=== PATIENT | female | born 1985 | race Caucasian/White ===

== ENCOUNTER 2016-09-03 19:18 | Emergency (ER) | payer OTHER ==
[2016-09-03] MEDS ORDERED: AMOXICILLIN 500 MG CAP As Ordered ONE (21:22)
[2016-09-03] MEDS ORDERED: IBUPROFEN 600 MG TAB As Ordered ONE (21:22)
[2016-09-03] MEDS ORDERED: ACETAMINOPHEN/CODEINE #3 TABLET (BULK) As Ordered ONE (21:23)
--- NOTE | 2016-09-03 21:29 | EDDOCDS ---
Physician Documentation [facility] Name: David Smiley Age: 31 yrs Sex: Female : 1985 Arrival Date: 09/03/2016 Time: 19:18 Bed TR8 Private MD: Ricardo Lambert MD Disposition: 09/03/16 21:15 Discharged to Home/Self Care. Impression: Periapical abscess without sinus. - Condition is Stable. - Discharge Instructions: Dental Abscess. - Prescriptions for Amoxicillin 500 mg Oral Capsule - take 1 capsule by ORAL route every 8 hours for 10 days; 30 tablet. Ibuprofen 600 mg Oral Tablet - take 1 tablet by ORAL route every 6 hours As needed take with food; 30 tablet. Tylenol- Codeine #3 300-30 mg Oral Tablet - take 2 tablets by ORAL route every 6 hours As needed MDD: 4 tabs; 12 tablet. - Medication Reconciliation, Local Pharmacy Hours form. - Follow up: Your own Physician; When: 2 - 3 days; Reason: Recheck today's complaints, Continuance of care. - Problem is new. - Symptoms have improved. Historical: - Allergies: no known allergies; - Home Meds: 1. none - PMHx: none; - PSHx: Knee Arthroplasty, Right; right and left groin surgery; Ear Tubes; - Social history: Smoking status: Patient states former smoker of tobacco. No barriers to communication noted, The patient speaks fluent Cymraes. - Family history: Not pertinent. - : The pt / caregiver states he / she is not on anticoagulants. Home medication list is obtained from the patient. - Exposure Risk Screening:: None identified. 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 8 in. (172.72 cm) (R); Pain 10/10; 21:16 BP 134 / 71; Pulse 69; Resp 18; Temp 98.1(TE); Pulse Ox 98% on R/A; Pain 10/10; mdr 19:19 Body Mass Index 27.37 (81.65 kg, 172.72 cm) gr2 MDM: 21:15 Acetaminophen-Codeine, 4 pack- 300 mg-30 mg 1 packets PO once; Dispense with patient. ck7 Take per package instructions. ordered. 21:15 Amoxicillin 500 mg PO once ordered. ck7 21:15 Ibuprofen 600 mg PO once ordered. ck7 21:25 Financial registration complete. ks16 21:26 [facility] Payment Agreement was scanned into [employer] and attached to record. ks16 Signatures: Rachel LongRN RN jo3 Roxana Hogue RN RN rs3 Sivakumar Ramos, RPA-C RPA-Cck7 Marlen Umaña, Reg Reg ks16 The chart was reviewed and I authenticate all verbal orders and agree with the evaluation and treatment provided.Attachments: 21:26 [facility] Payment Agreement ks16 MTDD
--- NOTE | 2016-09-03 21:29 | EDDOCDS ---
Nurse's Notes [facility] Name: David Smiley Age: 31 yrs Sex: Female : 1985 Arrival Date: 09/03/2016 Time: 19:18 Bed TR8 Private MD: Ricardo Lambert MD Diagnosis: Periapical abscess without sinus Presentation: 09/03 19:25 Presenting complaint: Patient states: Left cheek swelling and pain since last night rs3 getting worse progressively. had no relief with Tylenol/motrin. Adult Sepsis Screening: The patient does not have new or worsening altered mentation. Patient's respiratory rate is less than 22. Systolic blood pressure is greater than 100. Patient has a qSOFA score of 0- Negative Sepsis Screen. Suicide/Homicide risk assessment- the patient denies having any suicidal and/or homicidal ideations and does not present with any other emotional, behavioral or mental health complaints. Status: retired. Transition of care: patient was not received from another setting of care. 19:25 Acuity: CRISTIN Level 4 rs3 19:25 Method Of Arrival: Walkin/Carried/Asstd rs3 Triage Assessment: 19:28 General: Appears in no apparent distress. Pain: Location: left cheek and left jaw. Pt rs3 Declines HIV testing. 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 none - PMHx: none; - PSHx: Knee Arthroplasty, Right; right and left groin surgery; Ear Tubes; - Social history: Smoking status: Patient states former smoker of tobacco. No barriers to communication noted, The patient speaks fluent Bermudian. - Family history: Not pertinent. - : The pt / caregiver states he / she is not on anticoagulants. Home medication list is obtained from the patient. - Exposure Risk Screening:: None identified. Screenin:37 Screening information is obtained from the patient. Fall risk: No risks identified. jo3 Assistance ADL's: requires no assistance with activities of daily living. Abuse/DV Screen: The patient / caregiver reports he/she is: not in a situation that causes fear, pain or injury. Nutritional screening: No deficits noted. Advance Directives: There is no active DNR order. home support is adequate. Assessment: 20:37 General: Appears uncomfortable, Behavior is appropriate for age, cooperative. jo3 Neurological: Level of Consciousness is awake, alert, Oriented to person, place, time. Respiratory: Airway is patent Respiratory effort is even, unlabored. Derm: Skin is pink, warm & dry. Swollen area noted on left cheek and left jaw. 21:27 Reassessment: No significant changers noted in assessment status. Discharged with pain jo3 management . Vital Signs: 19:19 BP 142 / 79; Pulse 83; Resp 20 S; Temp 97.2(O); Pulse Ox 100% on R/A; Weight 81.65 kg gr2 (R); Height 5 ft. 8 in. (172.72 cm) (R); Pain 10/10; 21:16 BP 134 / 71; Pulse 69; Resp 18; Temp 98.1(TE); Pulse Ox 98% on R/A; Pain 10/10; mdr 19:19 Body Mass Index 27.37 (81.65 kg, 172.72 cm) gr2 Vitals: 19:19 Log In Time: September 03, 2016 at 19:19. gr2 ED Course: 19:19 Patient visited by Yamil Altamirano. gr2 19:19 Ricardo Lambert is Private Physician. gr2 19:19 Patient moved to Waiting gr2 19:22 Patient visited by Yamil Altamirano. gr2 19:22 Patient moved to Pre RCE gr2 19:27 Triage Initiated rs3 20:35 Patient moved to Triage 1 jo3 20:37 The patient / caregiver is instructed regarding the plan of care and ED course. jo3 20:38 Patient visited by Rachel Long RN. jo3 20:46 Sivakumar Ramos RPA-C [facility]. ck7 20:46 Logan Ryan DO is Attending Physician. ck7 20:46 Patient visited by Sivakumar Ramos RPA-C. ck7 21:15 Your own Physician is Referral Physician. ck7 21:20 Patient visited by Jasper Cortez PCA. mdr 21:26 [facility] Payment Agreement was scanned into [employer] and attached to record. ks16 21:27 Patient moved to TR8 cz 21:27 No IV's were initiated during this patient's visit. No procedures done that require jo3 assistance. Order Results: There are currently no results for this order. Outcome: 21:15 Discharge ordered by Provider. ck7 21:27 Discharge Assessment: Patient awake, alert and oriented x 3. No cognitive and/or jo3 functional deficits noted. Patient verbalized understanding of disposition instructions. patient administered narcotics - yes. Pt provided with safe discharge. The following High Risk Discharge criteria are identified: None. Discharged to home ambulatory, with significant other. Condition: stable. Discharge instructions given to patient, Instructed on discharge instructions, follow up and referral plans. medication usage, Demonstrated understanding of instructions, medications, Pt was receptive of discharge instructions/ teaching. Prescriptions given X 3. No special radiology studies were completed. Property sent home with patient. 21:28 Patient left the ED. jo3 Signatures: Dinesh Hamilton, RN RN Rachel Lopez RN RN jo3 Roxana HogueRN RN rs3 Sivakumar Ramos, RPA-C RPA-Cck7 Yamil Altamirano gr2 Jasper Cortez, ROOFING FOREMAN ROOFING FOREMAN Marlen Bhakta, Reg Reg ks16 MTDD
--- NOTE | 2016-09-05 22:29 | EDDOCDS ---
Physician Documentation [facility] Name: David Smiley Age: 31 yrs Sex: Female : 1985 Arrival Date: 09/03/2016 Time: 19:18 Bed TR8 Private MD: Ricardo Lambert MD Disposition: 09/03/16 21:15 Discharged to Home/Self Care. Impression: Periapical abscess without sinus. - Condition is Stable. - Discharge Instructions: Dental Abscess. - Prescriptions for Amoxicillin 500 mg Oral Capsule - take 1 capsule by ORAL route every 8 hours for 10 days; 30 tablet. Ibuprofen 600 mg Oral Tablet - take 1 tablet by ORAL route every 6 hours As needed take with food; 30 tablet. Tylenol- Codeine #3 300-30 mg Oral Tablet - take 2 tablets by ORAL route every 6 hours As needed MDD: 4 tabs; 12 tablet. - Medication Reconciliation, Local Pharmacy Hours form. - Follow up: Your own Physician; When: 2 - 3 days; Reason: Recheck today's complaints, Continuance of care. - Problem is new. - Symptoms have improved. Historical: - Allergies: no known allergies; - Home Meds: 1. none - PMHx: none; - PSHx: Knee Arthroplasty, Right; right and left groin surgery; Ear Tubes; - Social history: Smoking status: Patient states former smoker of tobacco. No barriers to communication noted, The patient speaks fluent Burmese. - Family history: Not pertinent. - : The pt / caregiver states he / she is not on anticoagulants. Home medication list is obtained from the patient. - Exposure Risk Screening:: None identified. 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 8 in. (172.72 cm) (R); Pain 10/10; 21:16 BP 134 / 71; Pulse 69; Resp 18; Temp 98.1(TE); Pulse Ox 98% on R/A; Pain 10/10; mdr 19:19 Body Mass Index 27.37 (81.65 kg, 172.72 cm) gr2 MDM: 21:15 Acetaminophen-Codeine, 4 pack- 300 mg-30 mg 1 packets PO once; Dispense with patient. ck7 Take per package instructions. ordered. 21:15 Amoxicillin 500 mg PO once ordered. ck7 21:15 Ibuprofen 600 mg PO once ordered. ck7 21:25 Financial registration complete. : [facility] Payment Agreement was scanned into [employer] and attached to record. 09/04 11:30 T-Sheet-- Draft Copy was scanned into [employer] and attached to record. gb Administered Medications: 09/03 21:25 Drug: Acetaminophen-Codeine, 4 pack- 1 packets [acetaminophen 300 mg-codeine 30 mg jo3 tablet (1 tabs)] {Co-Signature: kaushik (Dinesh Hamilton RN).} Route: PO; 21:25 Drug: Amoxicillin 500 mg [amoxicillin 500 mg capsule (1 caps)] Route: PO; jo3 21:25 Drug: Ibuprofen 600 mg [ibuprofen 600 mg tablet (1 tabs)] Route: PO; jo3 Signatures: Briana Bowling, Reg Reg gb Rachel LongRN RN jo3 Roxana Hogue,RN RN rs3 Sivakumar Ramos, RPA-C RPA-Cck7 Marlen Umaña, Reg Reg ks16 Dinesh faulkner The chart was reviewed and I authenticate all verbal orders and agree with the evaluation and treatment provided.Attachments: :26 [facility] Payment Agreement 09/04 11:30 T-Sheet-- Draft Copy gb Chart Complete MTDD
--- NOTE | 2016-09-05 22:30 | EDDOCDS ---
Nurse's Notes [facility] Name: David Smiley Age: 31 yrs Sex: Female : 1985 Arrival Date: 09/03/2016 Time: 19:18 Bed TR8 Private MD: Ricardo Lambert MD Diagnosis: Periapical abscess without sinus Presentation: 09/03 19:25 Presenting complaint: Patient states: Left cheek swelling and pain since last night rs3 getting worse progressively. had no relief with Tylenol/motrin. Adult Sepsis Screening: The patient does not have new or worsening altered mentation. Patient's respiratory rate is less than 22. Systolic blood pressure is greater than 100. Patient has a qSOFA score of 0- Negative Sepsis Screen. Suicide/Homicide risk assessment- the patient denies having any suicidal and/or homicidal ideations and does not present with any other emotional, behavioral or mental health complaints. Status: retired. Transition of care: patient was not received from another setting of care. 19:25 Acuity: CRISTIN Level 4 rs3 19:25 Method Of Arrival: Walkin/Carried/Asstd rs3 Triage Assessment: 19:28 General: Appears in no apparent distress. Pain: Location: left cheek and left jaw. Pt rs3 Declines HIV testing. 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 none - PMHx: none; - PSHx: Knee Arthroplasty, Right; right and left groin surgery; Ear Tubes; - Social history: Smoking status: Patient states former smoker of tobacco. No barriers to communication noted, The patient speaks fluent Montenegrin. - Family history: Not pertinent. - : The pt / caregiver states he / she is not on anticoagulants. Home medication list is obtained from the patient. - Exposure Risk Screening:: None identified. Screenin:37 Screening information is obtained from the patient. Fall risk: No risks identified. jo3 Assistance ADL's: requires no assistance with activities of daily living. Abuse/DV Screen: The patient / caregiver reports he/she is: not in a situation that causes fear, pain or injury. Nutritional screening: No deficits noted. Advance Directives: There is no active DNR order. home support is adequate. Assessment: 20:37 General: Appears uncomfortable, Behavior is appropriate for age, cooperative. jo3 Neurological: Level of Consciousness is awake, alert, Oriented to person, place, time. Respiratory: Airway is patent Respiratory effort is even, unlabored. Derm: Skin is pink, warm & dry. Swollen area noted on left cheek and left jaw. 21:27 Reassessment: No significant changers noted in assessment status. Discharged with pain jo3 management . Vital Signs: 19:19 BP 142 / 79; Pulse 83; Resp 20 S; Temp 97.2(O); Pulse Ox 100% on R/A; Weight 81.65 kg gr2 (R); Height 5 ft. 8 in. (172.72 cm) (R); Pain 10/10; 21:16 BP 134 / 71; Pulse 69; Resp 18; Temp 98.1(TE); Pulse Ox 98% on R/A; Pain 10/10; mdr 19:19 Body Mass Index 27.37 (81.65 kg, 172.72 cm) gr2 Vitals: 19:19 Log In Time: September 03, 2016 at 19:19. gr2 ED Course: 19:19 Patient visited by Yamil Altamirano. gr2 19:19 Ricardo Lambert is Private Physician. gr2 19:19 Patient moved to Waiting gr2 19:22 Patient visited by Yamil Altamirano. gr2 19:22 Patient moved to Pre RCE gr2 19:27 Triage Initiated rs3 20:35 Patient moved to Triage 1 jo3 20:37 The patient / caregiver is instructed regarding the plan of care and ED course. jo3 20:38 Patient visited by Rachel Long RN. jo3 20:46 Sivakumar [facility]-C [facility]. ck7 20:46 Logan Ryan DO is Attending Physician. ck7 20:46 Patient visited by Sivakumar Ramos RPA-C. ck7 21:15 Your own Physician is Referral Physician. ck7 21:20 Patient visited by Jasper Cortez PCA. mdr 21:26 [facility] Payment Agreement was scanned into [employer] and attached to record. ks16 21:27 Patient moved to TR8 cz 21:27 No IV's were initiated during this patient's visit. No procedures done that require jo3 assistance. 09/04 11:30 T-Sheet-- Draft Copy was scanned into [employer] and attached to record. gb Administered Medications: 09/03 21:25 Drug: Acetaminophen-Codeine, 4 pack- 1 packets [acetaminophen 300 mg-codeine 30 mg jo3 tablet (1 tabs)] {Co-Signature: kaushik (Dinesh Hamilton RN).} Route: PO; 21:25 Drug: Amoxicillin 500 mg [amoxicillin 500 mg capsule (1 caps)] Route: PO; jo3 21:25 Drug: Ibuprofen 600 mg [ibuprofen 600 mg tablet (1 tabs)] Route: PO; jo3 Order Results: There are currently no results for this order. Outcome: 21:15 Discharge ordered by Provider. ck7 21:27 Discharge Assessment: Patient awake, alert and oriented x 3. No cognitive and/or jo3 functional deficits noted. Patient verbalized understanding of disposition instructions. patient administered narcotics - yes. Pt provided with safe discharge. The following High Risk Discharge criteria are identified: None. Discharged to home ambulatory, with significant other. Condition: stable. Discharge instructions given to patient, Instructed on discharge instructions, follow up and referral plans. medication usage, Demonstrated understanding of instructions, medications, Pt was receptive of discharge instructions/ teaching. Prescriptions given X 3. No special radiology studies were completed. Property sent home with patient. 21:28 Patient left the ED. jo3 Signatures: Dinesh Hamilton, TIERA RN Briana Fierro, Reg Reg gb Rachel LongRN RN jo3 Roxana HogueRN RN rs3 Sivakumar Ramos, RPA-C RPA-Cck7 Yamil Altamirano gr2 Jasper Cortez, DIRECTOR AND PROFESSOR DIRECTOR AND PROFESSOR Marlen Bhakta, Reg Reg ks16 Dinesh faulkner Chart Complete MTDD
--- NOTE | 2016-09-05 22:31 | EDDOCDS ---
Physician Documentation [facility] Name: David Smiley Age: 31 yrs Sex: Female : 1985 Arrival Date: 09/03/2016 Time: 19:18 Bed TR8 Private MD: Ricardo Lambert MD Disposition: 09/03/16 21:15 Discharged to Home/Self Care. Impression: Periapical abscess without sinus. - Condition is Stable. - Discharge Instructions: Dental Abscess. - Prescriptions for Amoxicillin 500 mg Oral Capsule - take 1 capsule by ORAL route every 8 hours for 10 days; 30 tablet. Ibuprofen 600 mg Oral Tablet - take 1 tablet by ORAL route every 6 hours As needed take with food; 30 tablet. Tylenol- Codeine #3 300-30 mg Oral Tablet - take 2 tablets by ORAL route every 6 hours As needed MDD: 4 tabs; 12 tablet. - Medication Reconciliation, Local Pharmacy Hours form. - Follow up: Your own Physician; When: 2 - 3 days; Reason: Recheck today's complaints, Continuance of care. - Problem is new. - Symptoms have improved. Historical: - Allergies: no known allergies; - Home Meds: 1. none - PMHx: none; - PSHx: Knee Arthroplasty, Right; right and left groin surgery; Ear Tubes; - Social history: Smoking status: Patient states former smoker of tobacco. No barriers to communication noted, The patient speaks fluent Kenyan. - Family history: Not pertinent. - : The pt / caregiver states he / she is not on anticoagulants. Home medication list is obtained from the patient. - Exposure Risk Screening:: None identified. 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 8 in. (172.72 cm) (R); Pain 10/10; 21:16 BP 134 / 71; Pulse 69; Resp 18; Temp 98.1(TE); Pulse Ox 98% on R/A; Pain 10/10; mdr 19:19 Body Mass Index 27.37 (81.65 kg, 172.72 cm) gr2 MDM: 21:15 Acetaminophen-Codeine, 4 pack- 300 mg-30 mg 1 packets PO once; Dispense with patient. ck7 Take per package instructions. ordered. 21:15 Amoxicillin 500 mg PO once ordered. ck7 21:15 Ibuprofen 600 mg PO once ordered. ck7 21:25 Financial registration complete. : [facility] Payment Agreement was scanned into makeena and attached to record. 09/04 11:30 T-Sheet-- Draft Copy was scanned into makeena and attached to record. gb Administered Medications: 09/03 21:25 Drug: Acetaminophen-Codeine, 4 pack- 1 packets [acetaminophen 300 mg-codeine 30 mg jo3 tablet (1 tabs)] {Co-Signature: kaushik (Dinesh Hamilton RN).} Route: PO; 21:25 Drug: Amoxicillin 500 mg [amoxicillin 500 mg capsule (1 caps)] Route: PO; jo3 21:25 Drug: Ibuprofen 600 mg [ibuprofen 600 mg tablet (1 tabs)] Route: PO; jo3 Signatures: Briana Bowling, Reg Reg gb Rachel LongRN RN jo3 Roxana Hogue,RN RN rs3 Sivakumar Ramos, RPA-C RPA-Cck7 Marlen Umaña, Reg Reg ks16 Dinesh faulkner The chart was reviewed and I authenticate all verbal orders and agree with the evaluation and treatment provided.Attachments: :26 [facility] Payment Agreement 09/04 11:30 T-Sheet-- Draft Copy gb Chart Complete MTDD
== END 2016-09-03 21:28 | disposition home or self-care (01) ==
LOC: M ED 19:18
DX: K04.7 Periapical abscess without sinus (principal); Z87.891 Personal history of nicotine dependence

== ENCOUNTER 2016-09-06 15:54 | Emergency (ER) | payer OTHER ==
[~2016-09-06] VITALS: Ht 172.7 cm; Wt 81.7 kg
[2016-09-06] MEDS ORDERED: MORPHINE 4 MG/ML 1ML SYRINGE As Ordered ONE (16:46)
[2016-09-06] MEDS ORDERED: UNASYN 3 GM VIAL As Ordered ONE (17:00)
[2016-09-06 17:04] LABS: BASO % 0.2 % (0.0-1.0); EOS % 0.4 % (0.0-3.0); LARGE UNSTAINED CELL # 0.2 K/mm3 (0.0-0.4); LARGE UNSTAINED CELL % 1.6 % (0.0-4.0); LYMPH # 1.5 K/mm3 (1.5-4.5); LYMPH % 14.8 % (24.0-44.0); MEAN CORPUSCULAR HEMOGLOBIN 30.7 pg (27.0-33.0); MEAN CORPUSCULAR HGB CONC 32.6 g/dl (32.0-36.5); MEAN CORPUSCULAR VOLUME 94.2 fl (80.0-96.0); MONO # 0.4 K/mm3 (0.0-0.8); MONO % 4.1 % (0.0-5.0); NEUTROPHILS # 8.1 K/mm3 (1.8-7.7); NEUTROPHILS % 78.9 % (36.0-66.0); PLATELET COUNT, AUTOMATED 252 k/mm3 (150-450); RED CELL DISTRIBUTION WIDTH 11.9 % (11.5-14.5); WHITE BLOOD COUNT 10.3 K/mm3 (4.0-10.0)
[2016-09-06 17:23] LABS: ANION GAP 10 MEQ/L (8-16); BLOOD UREA NITROGEN 7 MG/DL (7-18); CALCIUM LEVEL 8.8 MG/DL (8.5-10.1); CARBON DIOXIDE LEVEL 26 MEQ/L (21-32); CHLORIDE LEVEL 101 MEQ/L (98-107); GLOMERULAR FILTRATION RATE > 60.0 (>60); GLUCOSE, FASTING 87 MG/DL (70-105); POTASSIUM SERUM 3.8 MEQ/L (3.5-5.1); SODIUM LEVEL 137 MEQ/L (136-145)
[2016-09-06] MEDS ORDERED: ISOVUE-370 76% 100ML VIAL (Q9967) As Ordered ONE (17:48)
--- NOTE | 2016-09-06 18:20 | REPUSA ---
CT of the soft tissues of the neck with contrast Clinical history: left facial abscess. Technique: Multiple axial CT images were obtained from the base of the skull to the upper thorax afte r administration of nonionic intravenous contrast. Coronal and sagittal reconstructions were also obt ained. Findings: There is a ill-defined area of low attenuation in the deep soft tissues of the left mandibu lar region, measuring 2.0 x 1.0 x 1.6 cm. Moderate surrounding swelling and inflammatory stranding is also noted. The visualized paranasal sinuses are clear. The pterygopalatine fossa, pterygoid plates and pterygoid muscles are unremarkable. The mucosa of the naso- and oropharynx appears unremarkable. The hypopharynx and larynx show no pathology. The visualized osseous structures are intact. The airwa y is patent. No focal mass is appreciated. There is no evidence of lymphadenopathy. The thyroid gland appears unremarkable. Impression: 1. Ill-defined area of low attenuation in the left mandibular region with surrounding soft tissue swe lling and inflammation. The findings are suspicious for cellulitis with possible early developing abs cess. Clinical correlation is suggested. 2. No suspicious osseous abnormalities.
[2016-09-06] MEDS ORDERED: MORPHINE 2 MG/ML 1ML SYRINGE As Ordered ONE (18:22)
[2016-09-06] MEDS ORDERED: ACET30TAB PO (18:48)
[2016-09-06] MEDS ORDERED: IBUP60TA PO (18:48)
[2016-09-06] MEDS ORDERED: AMOX500C PO (18:48)
--- NOTE | 2016-09-06 21:41 | EDDOCDS ---
Nurse's Notes [facility] Name: David Smiley Age: 31 yrs Sex: Female : 1985 Arrival Date: 09/06/2016 Time: 15:54 Bed I5 / M5 Private MD: Diagnosis: Cellulitis of face-LEFT, EXTENDING INTO SUBMANDIBULAR SPACE;Cellulitis of neck Presentation: 09/06 16:01 Presenting complaint: Patient states: seen here for swelling and pain to left pml jaw. started on abx and pain meds and sent home. this AM noted increased swelling and redness to jaw and neck. seen at and told to come to ED for CT scans. Adult Sepsis Screening: The patient does not have new or worsening altered mentation. Patient's respiratory rate is less than 22. Systolic blood pressure is greater than 100. Patient has a qSOFA score of 0- Negative Sepsis Screen. Suicide/Homicide risk assessment- the patient denies having any suicidal and/or homicidal ideations and does not present with any other emotional, behavioral or mental health complaints. Status: Patient is not a multimedia services coordinator or dependent. Transition of care: patient was not received from another setting of care. 16:01 Acuity: CRISTIN Level 3 pml 16:01 Method Of Arrival: Walkin/Carried/Asstd pml Triage Assessment: 16:02 General: Appears in no apparent distress, Behavior is appropriate for age, cooperative. pml Pain: Location: mouth and neck Pain currently is 9 out of 10 on a pain scale. HIV screening NA for this visit Offered previously. 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 amoxicillin 500 mg Oral cap 1 cap every 8 hours - PMHx: none; - PSHx: Knee Arthroplasty, Right; right and left groin surgery; Ear Tubes; - Social history: Smoking status: Electronic cigarettes No barriers to communication noted, The patient speaks fluent Sri Lankan, Speaks appropriately for age. - Family history: Not pertinent. - : The pt / caregiver states he / she is not on anticoagulants. Home medication list is obtained from the patient. - Exposure Risk Screening:: None identified. Screenin:54 Screening information is obtained from the patient. Fall risk: No risks identified. ck1 Assistance ADL's: requires no assistance with activities of daily living. Abuse/DV Screen: The patient / caregiver reports he/she is: not in a situation that causes fear, pain or injury. Nutritional screening: No deficits noted. Advance Directives: Currently, there is no health care proxy. home support is adequate. Assessment: 16:54 General: Appears in no apparent distress, Behavior is appropriate for age, cooperative. ck1 Pain: Location: left cheek and left jaw Pain currently is 9 out of 10 on a pain scale. Neurological: Level of Consciousness is awake, alert, obeys commands, Oriented to person, place, time. EENT: Oral mucosa is moist. Respiratory: Airway is patent Respiratory effort is unlabored, Respiratory pattern is regular, symmetrical. GI: No deficits noted. Derm: Swollen area noted on left cheek and left jaw. Musculoskeletal: Circulation, motion, and sensation intact Range of motion intact in all extremities. 17:48 General: Appears in no apparent distress, comfortable, Behavior is appropriate for age, jmb cooperative, Patient laying on stretcher, appears comfortable. Patient voices no complaints at this time. . Neurological: Level of Consciousness is awake, alert, obeys commands, Oriented to person, place, time, Conductor Pullman are equal bilaterally Speech is normal, Facial symmetry appears normal, Facial symmetry: tongue is midline. Respiratory: Airway is patent Respiratory effort is even, unlabored, Respiratory pattern is regular, symmetrical. 18:42 Reassessment: Patient appears in no apparent distress at this time. resting quietly on ck1 stretcher. No acute distress noted at this time. Call light in reach, SO at bedside. Will continue to monitor patient. 19:15 General: Appears in no apparent distress, comfortable, Behavior is appropriate for age, jmb cooperative, Patient laying on stretcher, appears comfortable. NO voiced complaints at this time. . Neurological: Level of Consciousness is awake, alert, obeys commands, Oriented to person, place, time. Respiratory: Airway is patent Respiratory effort is even, unlabored, Respiratory pattern is regular, symmetrical. 20:21 General: Appears in no apparent distress, comfortable, Behavior is appropriate for age, jmb cooperative. Neurological: Level of Consciousness is awake, alert, obeys commands, Oriented to person, place, time. Respiratory: Airway is patent Respiratory effort is even, unlabored, Respiratory pattern is regular, symmetrical. 21:35 General: Appears in no apparent distress, comfortable, Behavior is appropriate for age, jmb cooperative, Report given to ems and danelle marx RN at [facility]. Neurological: Level of Consciousness is awake, alert, obeys commands, Oriented to person, place, time. Respiratory: Airway is patent Respiratory effort is even, unlabored, Respiratory pattern is regular, symmetrical. Vital Signs: 15:57 BP 137 / 74 RA Sitting (auto/lg); Pulse 96; Resp 18; Temp 97.0(T); Pulse Ox 100% on bnb R/A; Weight 81.65 kg; Height 5 ft. 8 in. (172.72 cm); Pain 9/10; 17:33 BP 113 / 59; Pulse 95; Resp 18; Temp 98.5(O); Pulse Ox 100% on R/A; Pain 4/10; ck1 21:34 BP 131 / 77; Pulse 72; Resp 18; Temp 99.5(TE); Pulse Ox 100% on R/A; Pain 8/10; nb2 15:57 Body Mass Index 27.37 (81.65 kg, 172.72 cm) b Vitals: 15:57 Log In Time: September 06, 2016 at 15:55. b ED Course: 15:56 Patient visited by Aidee Barnes PCA. bnb 15:56 Patient moved to Waiting bnb 15:58 Patient moved to Pre RCE bnb 16:02 Triage Initiated pml 16:03 Patient visited by Kira Stapleton RN. pml 16:13 Patient moved to Triage 1 pml 16:25 [facility] Contreras [facility]. ar2 16:25 Fidelia Mejia MD is Attending Physician. ar2 16:26 Patient visited by Vinnie Contreras PA-C. ar2 16:42 Patient moved to I5 / M5 pml 16:47 Patient visited by Gladys Montiel PCA. ar3 16:53 CBC with Diff Sent. ck1 16:53 MED Profile Sent. ck1 16:53 Lactic Acid (Allen tube on ice) Sent. ck1 16:54 The patient / caregiver is instructed regarding the plan of care and ED course. ck1 16:54 -Blood Culture Sent. ck1 16:54 Inserted saline lock: 20 gauge in right antecubital area and blood collected. The ck1 patient tolerated the procedure well. 17:20 Patient visited by Lillie Soriano,TIERA. ck1 17:50 Patient visited by Jignesh Barnes RN. jmb 18:02 [facility] Payment Agreement was scanned into [employer] and attached to record. zo 18:04 PHCP role handed off by Vinnie Contreras PA-C ck7 18:04 Sivakumar Ramos RPA-C is PHCP. ck7 18:20 Patient visited by Lillie Soriano RN. ck1 18:43 Patient visited by Lillie Soriano,TIERA. ck1 18:56 CT Neck With Contrast Returned. EDMS 19:16 Patient visited by Jignesh Barnes RN. jmb 19:50 Attending Physician role handed off by Fidelia Mejia MD mm11 19:50 Logan Ryan DO is Attending Physician. mm11 20:22 Patient visited by Jignesh Barnes RN. jmb 21:34 Patient visited by Mirtha Moreland. nb2 21:35 No procedures done that require assistance. jmb Administered Medications: 16:56 Drug: NS 0.9% 1000 ml [sodium chloride 0.9 % intravenous solution] Route: IV; Rate: jmb bolus; Site: right antecubital; 16:56 Drug: morphine 4 mg [morphine 4 mg/mL intravenous cartridge (1 mL)] Route: IVP; Site: b right antecubital; 17:33 Follow up: BP 113 / 59; Pulse 95 bpm; Resp 18 bpm; Temp 98.5 Oral; Pulse Ox 100% RA; ck1 Pain 4/10 Adult; Response: Confirmed pt not driving.; No Adverse Reaction; Pain is decreased 18:25 Follow up: Response: No Adverse Reaction jmb 17:04 Drug: Ampicillin-Sulbactam Sodium 3 grams [ampicillin-sulbactam 1.5 gram solution for jmb injection] Route: IVPB; Infused Over: 30 mins; Site: right antecubital; 17:33 Follow up: IV Status: Completed infusion ck1 18:25 Follow up: IV Status: Completed infusion b 18:25 Drug: morphine 2 mg [morphine 2 mg/mL intravenous cartridge (1 mL)] Route: IVP; Site: jmb left forearm; 20:08 Drug: NS 0.9% 1000 ml [sodium chloride 0.9 % intravenous solution] Route: IV; Rate: 150 jmb mL/hr; Site: left hand; Point of Care Testing: Urine : 16:47 hCG Reading: Negative; Control Reading: Positive; ar3 Ranges: Order Results: Lab Order: CBC with Diff; SPEC'M 09/06/16 16:51 Test: WHITE BLOOD COUNT; Value: 10.3; Range: 4.0-10.0; Abnormal: Above high normal; Units: K/mm3; Status: F Test: RED BLOOD COUNT; Value: 4.21; Range: 4.00-5.40; Units: M/mm3; Status: F Test: HEMOGLOBIN; Value: 12.9; Range: 12.0-16.0; Units: g/dl; Status: F Test: HEMATOCRIT; Value: 39.7; Range: 36.0-47.0; Units: %; Status: F Test: MEAN CORPUSCULAR VOLUME; Value: 94.2; Range: 80.0-96.0; Units: fl; Status: F Test: MEAN CORPUSCULAR HEMOGLOBIN; Value: 30.7; Range: 27.0-33.0; Units: pg; Status: F Test: MEAN CORPUSCULAR HGB CONC; Value: 32.6; Range: 32.0-36.5; Units: g/dl; Status: F Test: RED CELL DISTRIBUTION WIDTH; Value: 11.9; Range: 11.5-14.5; Units: %; Status: F Test: PLATELET COUNT, AUTOMATED; Value: 252; Range: 150-450; Units: k/mm3; Status: F Test: NEUTROPHILS %; Value: 78.9; Range: 36.0-66.0; Abnormal: Above high normal; Units: %; Status: F Test: LYMPH %; Value: 14.8; Range: 24.0-44.0; Abnormal: Below low normal; Units: %; Status: F Test: MONO %; Value: 4.1; Range: 0.0-5.0; Units: %; Status: F Test: EOS %; Value: 0.4; Range: 0.0-3.0; Units: %; Status: F Test: BASO %; Value: 0.2; Range: 0.0-1.0; Units: %; Status: F Test: LARGE UNSTAINED CELL %; Value: 1.6; Range: 0.0-4.0; Units: %; Status: F Test: NEUTROPHILS #; Value: 8.1; Range: 1.8-7.7; Abnormal: Above high normal; Units: K/mm3; Status: F Test: LYMPH #; Value: 1.5; Range: 1.5-4.5; Units: K/mm3; Status: F Test: MONO #; Value: 0.4; Range: 0.0-0.8; Units: K/mm3; Status: F Test: EOS #; Value: 0.0; Range: 0.0-0.50; Units: K/mm3; Status: F Test: BASO #; Value: 0.0; Range: 0.0-0.2; Units: K/mm3; Status: F Test: LARGE UNSTAINED CELL #; Value: 0.2; Range: 0.0-0.4; Units: K/mm3; Status: F Lab Order: MED Profile; [facility]' 09/06/16 16:51 Test: GLUCOSE, FASTING; Value: 87; Range: 70-105; Units: MG/DL; Status: F Test: BLOOD UREA NITROGEN; Value: 7; Range: 7-18; Units: MG/DL; Status: F Test: CREATININE FOR GFR; Value: 0.60; Range: 0.55-1.02; Units: MG/DL; Status: F Test: GLOMERULAR FILTRATION RATE; Value: > 60.0; Range: >60; Status: F Test: SODIUM LEVEL; Value: 137; Range: 136-145; Units: MEQ/L; Status: F Test: POTASSIUM SERUM; Value: 3.8; Range: 3.5-5.1; Units: MEQ/L; Status: F Test: CHLORIDE LEVEL; Value: 101; Range: 98-107; Units: MEQ/L; Status: F Test: CARBON DIOXIDE LEVEL; Value: 26; Range: 21-32; Units: MEQ/L; Status: F Test: ANION GAP; Value: 10; Range: 8-16; Units: MEQ/L; Status: F Test: CALCIUM LEVEL; Value: 8.8; Range: 8.5-10.1; Units: MG/DL; Status: F Test Note: ; Units are mL/min/1.73 m2 Chronic Kidney Disease Staging per NKF: Stage I & II GFR >=60 Normal to Mildly Decreased Stage III GFR 30-59 Moderately Decreased Stage IV GFR 15-29 Severely Decreased Stage V GFR <15 Very Little GFR Left ESRD GFR <15 on 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 Coronal and sagittal reconstructions were also obt; ained.; Findings: There is a ill-defined area of low attenuation in the deep soft tissues of the left mandibu; lar region, measuring 2.0 x 1.0 x 1.6 cm. Moderate surrounding swelling and inflammatory stranding is; also noted. The visualized paranasal sinuses are clear. The pterygopalatine fossa, pterygoid plates; and pterygoid muscles are unremarkable. The mucosa of the naso- and oropharynx appears unremarkable.; The hypopharynx and larynx show no pathology. The visualized osseous structures are intact. The airwa; y is patent. No focal mass is appreciated. There is no evidence of lymphadenopathy. The thyroid gland; appears unremarkable.; Impression:; 1. Ill-defined area of low attenuation in the left mandibular region with surrounding soft tissue swe; lling and inflammation. The findings are suspicious for cellulitis with possible early developing abs; cess. Clinical correlation is suggested.; 2. No suspicious osseous abnormalities.; ; Outcome: 17:25 CT Study completed. ck1 19:22 ER care complete, transfer ordered by Provider. ck7 21:35 Discharge Assessment: Patient awake, alert and oriented x 3. No cognitive and/or jmb functional deficits noted. Patient verbalized understanding of disposition instructions. Patient awake and alert. obeys commands, Oriented to person, place and time. Patient verbalized understanding of disposition instructions. Patient has no functional deficits. patient administered narcotics - yes. Patient was admitted to the hospital or transferred to another facility. The following High Risk Discharge criteria are identified: None. [facility]red [facility]. by EMS ground [facility] ambulance report to accompanying personnel Clara Benavidez and Radha Khoury, Transfer form completed. x-rays sent w/ patient. Condition: stable. Property :Personal belongings accompany Pt. 21:39 Patient left the ED. katina Signatures: Dispatcher [employer] EDMO Lillie Soriano RN RN ck1 Kali Cherry Matthew, DO mm11 Vinnie Contreras, PA-C PA-C ar2 Gladys Montiel, PIPE CLEANER PIPE CLEANER ar3 Kira Stapleton RN RN pml Kwaczala, Christopher, RPA-C RPA-Cck7 Jignesh Barnes RN RN jmb Baart, Nicole nb2 Becker, Brittney, PIPE CLEANER PIPE CLEANER bnb ADELINE
--- NOTE | 2016-09-06 21:41 | EDDOCDS ---
Physician Documentation [facility] Name: David Smiley Age: 31 yrs Sex: Female : 1985 Arrival Date: 09/06/2016 Time: 15:54 Bed I5 / M5 Private MD: Disposition: 09/06 19:51 I concur with the Midlevel Provider's decision to transfer this patient to a Higher [facility] Level of Care Facility. Logan Ryan DO. Disposition: 09/06/16 19:22 Transfer ordered to [facility]. Diagnosis are Cellulitis of face - LEFT, EXTENDING INTO SUBMANDIBULAR SPACE, Cellulitis of neck. - Reason for transfer: Higher level of care. - Accepting physician is RAFAELA. - Condition is Stable. - Problem is new. - Symptoms are unchanged. Historical: - Allergies: no known allergies; - Home Meds: 1. amoxicillin 500 mg Oral cap 1 cap every 8 hours - PMHx: none; - PSHx: Knee Arthroplasty, Right; right and left groin surgery; Ear Tubes; - Social history: Smoking status: Electronic cigarettes No barriers to communication noted, The patient speaks fluent Yoruba, Speaks appropriately for age. - Family history: Not pertinent. - : The pt / caregiver states he / she is not on anticoagulants. Home medication list is obtained from the patient. - Exposure Risk Screening:: None identified. 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 8 in. (172.72 cm); Pain 9/10; 17:33 BP 113 / 59; Pulse 95; Resp 18; Temp 98.5(O); Pulse Ox 100% on R/A; Pain 4/10; ck1 21:34 BP 131 / 77; Pulse 72; Resp 18; Temp 99.5(TE); Pulse Ox 100% on R/A; Pain 8/10; nb2 15:57 Body Mass Index 27.37 (81.65 kg, 172.72 cm) bnb MDM: 16:39 IV Saline Lock ordered. ar2 16:39 -Blood Culture (Adults Only), peripheral from different site, or from device/port/PICC ar2 etc. if present ordered. 16:39 UCG by Nursing ordered. ar2 16:39 Ampicillin-Sulbactam Sodium 3 grams IVPB once over 30 mins; dilute in 100mL of NS or ar2 D5W ordered. 16:39 NS 0.9% 1000 ml IV at bolus once ordered. ar2 16:40 CBC with Diff Ordered. EDMS 16:40 MED Profile Ordered. EDMS 16:40 Lactic Acid (Allen tube on ice) Ordered. EDMS 16:40 -Blood Culture Ordered. EDMS 16:40 CT Neck With Contrast Ordered. EDMS 16:40 morphine 4 mg IVP once ordered. ar2 16:40 NOTHING BY MOUTH+DIET ordered. EDMS 16:47 -Blood Culture (Adults Only), peripheral from different site, or from device/port/PICC jml1 etc. if present complete. 16:48 BLOOD CULTURES Ordered. EDMS 17:45 CBC with Diff Reviewed. ar2 17:45 MED Profile Reviewed. ar2 17:45 Lactic Acid (Allen tube on ice) Reviewed. ar2 17:48 Financial registration complete. zo 18:02 [facility] Payment Agreement was scanned into [employer] and attached to record. zo 18:21 morphine 2 mg IVP once ordered. ck7 18:32 BED REQUEST+ADM ordered. EDMS 19:42 NS 0.9% 1000 ml IV at 150 mL/hr continuous ordered. ck7 Point of Care Testing: Urine : 16:47 hCG Reading: Negative; Control Reading: Positive; ar3 Ranges: Administered Medications: 16:56 Drug: NS 0.9% 1000 ml [sodium chloride 0.9 % intravenous solution] Route: IV; Rate: jmb bolus; Site: right antecubital; 16:56 Drug: morphine 4 mg [morphine 4 mg/mL intravenous cartridge (1 mL)] Route: IVP; Site: jmb right antecubital; 17:33 Follow up: BP 113 / 59; Pulse 95 bpm; Resp 18 bpm; Temp 98.5 Oral; Pulse Ox 100% RA; ck1 Pain 4/10 Adult; Response: Confirmed pt not driving.; No Adverse Reaction; Pain is decreased 18:25 Follow up: Response: No Adverse Reaction [facility] 17:04 Drug: Ampicillin-Sulbactam Sodium 3 grams [ampicillin-sulbactam 1.5 gram solution for jmb injection] Route: IVPB; Infused Over: 30 mins; Site: right antecubital; 17:33 Follow up: IV Status: Completed infusion ck1 18:25 Follow up: IV Status: Completed infusion katina 18:25 Drug: morphine 2 mg [morphine 2 mg/mL intravenous cartridge (1 mL)] Route: IVP; Site: jmb left forearm; 20:08 Drug: NS 0.9% 1000 ml [sodium chloride 0.9 % intravenous solution] Route: IV; Rate: 150 jmb mL/hr; Site: left hand; Signatures: Dispatcher [employer] EDMS Lillie Soriano,RN RN ck1 Kali Cherry Matthew, mm11 Vinnie Contreras PA-C PA-C ar2 David Arreguin jml1 Kira Stapleton RN RN pml Sivakumar Ramos RPA-C RPA-Cck7 Jignesh Barnes RN RN jmb The chart was reviewed and I authenticate all verbal orders and agree with the evaluation and treatment provided.Attachments: 18:02 [facility] Payment Agreement zo MTDD
--- NOTE | 2016-09-08 22:41 | EDDOCDS ---
Physician Documentation [facility] Name: David Smiley Age: 31 yrs Sex: Female : 1985 Arrival Date: 09/06/2016 Time: 15:54 Bed I5 / M5 Private MD: Disposition: 09/06 19:51 I concur with the Midlevel Provider's decision to transfer this patient to a Higher [facility] Level of Care Facility. Logan Ryan DO. Disposition: 09/06/16 19:22 Transfer ordered to [facility]. Diagnosis are Cellulitis of face - LEFT, EXTENDING INTO SUBMANDIBULAR SPACE, Cellulitis of neck. - Reason for transfer: Higher level of care. - Accepting physician is RAFAELA. - Condition is Stable. - Problem is new. - Symptoms are unchanged. Historical: - Allergies: no known allergies; - Home Meds: 1. amoxicillin 500 mg Oral cap 1 cap every 8 hours - PMHx: none; - PSHx: Knee Arthroplasty, Right; right and left groin surgery; Ear Tubes; - Social history: Smoking status: Electronic cigarettes No barriers to communication noted, The patient speaks fluent Turkmen, Speaks appropriately for age. - Family history: Not pertinent. - : The pt / caregiver states he / she is not on anticoagulants. Home medication list is obtained from the patient. - Exposure Risk Screening:: None identified. 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 8 in. (172.72 cm); Pain 9/10; 17:33 BP 113 / 59; Pulse 95; Resp 18; Temp 98.5(O); Pulse Ox 100% on R/A; Pain 4/10; ck1 21:34 BP 131 / 77; Pulse 72; Resp 18; Temp 99.5(TE); Pulse Ox 100% on R/A; Pain 8/10; nb2 15:57 Body Mass Index 27.37 (81.65 kg, 172.72 cm) bnb MDM: 16:39 IV Saline Lock ordered. ar2 16:39 -Blood Culture (Adults Only), peripheral from different site, or from device/port/PICC ar2 etc. if present ordered. 16:39 UCG by Nursing ordered. ar2 16:39 Ampicillin-Sulbactam Sodium 3 grams IVPB once over 30 mins; dilute in 100mL of NS or ar2 D5W ordered. 16:39 NS 0.9% 1000 ml IV at bolus once ordered. ar2 16:40 CBC with Diff Ordered. EDMS 16:40 MED Profile Ordered. EDMS 16:40 Lactic Acid (Allen tube on ice) Ordered. EDMS 16:40 -Blood Culture Ordered. EDMS 16:40 CT Neck With Contrast Ordered. EDMS 16:40 morphine 4 mg IVP once ordered. ar2 16:40 NOTHING BY MOUTH+DIET ordered. EDMS 16:47 -Blood Culture (Adults Only), peripheral from different site, or from device/port/PICC jml1 etc. if present complete. 16:48 BLOOD CULTURES Ordered. EDMS 17:45 CBC with Diff Reviewed. ar2 17:45 MED Profile Reviewed. ar2 17:45 Lactic Acid (Allen tube on ice) Reviewed. ar2 17:48 Financial registration complete. zo 18:02 [facility] [place] Agreement was scanned into [employer] and attached to record. zo 18:21 morphine 2 mg IVP once ordered. ck7 18:32 BED REQUEST+ADM ordered. EDMS 19:42 NS 0.9% 1000 ml IV at 150 mL/hr continuous ordered. ck7 09/07 12:38 T-Sheet-- Draft Copy was scanned into [employer] and attached to record. gb 12:39 Radiology Report was scanned into [employer] and attached to record. gb Point of Care Testing: Urine : 09/06 16:47 hCG Reading: Negative; Control Reading: Positive; ar3 Ranges: Administered Medications: 16:56 Drug: NS 0.9% 1000 ml [sodium chloride 0.9 % intravenous solution] Route: IV; Rate: jmb bolus; Site: right antecubital; 16:56 Drug: morphine 4 mg [morphine 4 mg/mL intravenous cartridge (1 mL)] Route: IVP; Site: jmb right antecubital; 17:33 Follow up: BP 113 / 59; Pulse 95 bpm; Resp 18 bpm; Temp 98.5 Oral; Pulse Ox 100% RA; ck1 Pain /10 Adult; Response: Confirmed pt not driving.; No Adverse Reaction; Pain is decreased 18:25 Follow up: Response: No Adverse Reaction [facility] 17:04 Drug: Ampicillin-Sulbactam Sodium 3 grams [ampicillin-sulbactam 1.5 gram solution for jmb injection] Route: IVPB; Infused Over: 30 mins; Site: right antecubital; 17:33 Follow up: IV Status: Completed infusion ck1 18:25 Follow up: IV Status: Completed infusion [facility] 18:25 Drug: morphine 2 mg [morphine 2 mg/mL intravenous cartridge (1 mL)] Route: IVP; Site: jmb left forearm; 20:08 Drug: NS 0.9% 1000 ml [sodium chloride 0.9 % intravenous solution] Route: IV; Rate: 150 jmb mL/hr; Site: left hand; Signatures: Dispatcher [employer] EDMS Briana Bowling, Reg Reg gb Lillie Soriano RN RN ck1 Kali Cherry Matthew, DO mm11 Vinnie Contreras PA-C PACoco ar2 David Arreguin jml1 Kira Stapleton RN RN pml Sivakumar Ramos RPA-C RPA-Cck7 Jignesh Barnes RN RN jmb The chart was reviewed and I authenticate all verbal orders and agree with the evaluation and treatment provided.Attachments: 18:02 [facility] Payment Agreement zo 09/07 12:38 T-Sheet-- Draft Copy Chart Complete MTDD
--- NOTE | 2016-09-08 22:41 | EDDOCDS ---
Physician Documentation [facility] Name: David Smiley Age: 31 yrs Sex: Female : 1985 Arrival Date: 09/06/2016 Time: 15:54 Bed I5 / M5 Private MD: Disposition: 09/06 19:51 I concur with the Midlevel Provider's decision to transfer this patient to a Higher [facility] Level of Care Facility. Logan Ryan DO. Disposition: 09/06/16 19:22 Transfer ordered to [facility]. Diagnosis are Cellulitis of face - LEFT, EXTENDING INTO SUBMANDIBULAR SPACE, Cellulitis of neck. - Reason for transfer: Higher level of care. - Accepting physician is RAFAELA. - Condition is Stable. - Problem is new. - Symptoms are unchanged. Historical: - Allergies: no known allergies; - Home Meds: 1. amoxicillin 500 mg Oral cap 1 cap every 8 hours - PMHx: none; - PSHx: Knee Arthroplasty, Right; right and left groin surgery; Ear Tubes; - Social history: Smoking status: Electronic cigarettes No barriers to communication noted, The patient speaks fluent Amharic, Speaks appropriately for age. - Family history: Not pertinent. - : The pt / caregiver states he / she is not on anticoagulants. Home medication list is obtained from the patient. - Exposure Risk Screening:: None identified. 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 8 in. (172.72 cm); Pain 9/10; 17:33 BP 113 / 59; Pulse 95; Resp 18; Temp 98.5(O); Pulse Ox 100% on R/A; Pain 4/10; ck1 21:34 BP 131 / 77; Pulse 72; Resp 18; Temp 99.5(TE); Pulse Ox 100% on R/A; Pain 8/10; nb2 15:57 Body Mass Index 27.37 (81.65 kg, 172.72 cm) bnb MDM: 16:39 IV Saline Lock ordered. ar2 16:39 -Blood Culture (Adults Only), peripheral from different site, or from device/port/PICC ar2 etc. if present ordered. 16:39 UCG by Nursing ordered. ar2 16:39 Ampicillin-Sulbactam Sodium 3 grams IVPB once over 30 mins; dilute in 100mL of NS or ar2 D5W ordered. 16:39 NS 0.9% 1000 ml IV at bolus once ordered. ar2 16:40 CBC with Diff Ordered. EDMS 16:40 MED Profile Ordered. EDMS 16:40 Lactic Acid (Allen tube on ice) Ordered. EDMS 16:40 -Blood Culture Ordered. EDMS 16:40 CT Neck With Contrast Ordered. EDMS 16:40 morphine 4 mg IVP once ordered. ar2 16:40 NOTHING BY MOUTH+DIET ordered. EDMS 16:47 -Blood Culture (Adults Only), peripheral from different site, or from device/port/PICC jml1 etc. if present complete. 16:48 BLOOD CULTURES Ordered. EDMS 17:45 CBC with Diff Reviewed. ar2 17:45 MED Profile Reviewed. ar2 17:45 Lactic Acid (Allen tube on ice) Reviewed. ar2 17:48 Financial registration complete. zo 18:02 [facility] [place] was scanned into [employer] and attached to record. zo 18:21 morphine 2 mg IVP once ordered. ck7 18:32 BED REQUEST+ADM ordered. EDMS 19:42 NS 0.9% 1000 ml IV at 150 mL/hr continuous ordered. ck7 09/07 12:38 T-Sheet-- Draft Copy was scanned into [employer] and attached to record. gb 12:39 Radiology Report was scanned into [employer] and attached to record. gb Point of Care Testing: Urine : 09/06 16:47 hCG Reading: Negative; Control Reading: Positive; ar3 Ranges: Administered Medications: 16:56 Drug: NS 0.9% 1000 ml [sodium chloride 0.9 % intravenous solution] Route: IV; Rate: jmb bolus; Site: right antecubital; 16:56 Drug: morphine 4 mg [morphine 4 mg/mL intravenous cartridge (1 mL)] Route: IVP; Site: jmb right antecubital; 17:33 Follow up: BP 113 / 59; Pulse 95 bpm; Resp 18 bpm; Temp 98.5 Oral; Pulse Ox 100% RA; ck1 Pain /10 Adult; Response: Confirmed pt not driving.; No Adverse Reaction; Pain is decreased 18:25 Follow up: Response: No Adverse Reaction [facility] 17:04 Drug: Ampicillin-Sulbactam Sodium 3 grams [ampicillin-sulbactam 1.5 gram solution for jmb injection] Route: IVPB; Infused Over: 30 mins; Site: right antecubital; 17:33 Follow up: IV Status: Completed infusion ck1 18:25 Follow up: IV Status: Completed infusion [facility] 18:25 Drug: morphine 2 mg [morphine 2 mg/mL intravenous cartridge (1 mL)] Route: IVP; Site: jmb left forearm; 20:08 Drug: NS 0.9% 1000 ml [sodium chloride 0.9 % intravenous solution] Route: IV; Rate: 150 jmb mL/hr; Site: left hand; Signatures: Dispatcher [employer] EDMS Briana Bowling, Reg Reg gb Lillie Soriano RN RN ck1 Kali Cherry Matthew, DO mm11 Vinnie Contreras PA-C PACoco ar2 David Arreguin jml1 Kira Stapleton RN RN pml Sivakumar Ramos RPA-C RPA-Cck7 Jignesh Barnes RN RN jmb The chart was reviewed and I authenticate all verbal orders and agree with the evaluation and treatment provided.Attachments: 18:02 [facility] Payment Agreement zo 09/07 12:38 T-Sheet-- Draft Copy Chart Complete MTDD
--- NOTE | 2016-09-08 22:41 | EDDOCDS ---
Nurse's Notes [facility] Name: David Smiley Age: 31 yrs Sex: Female : 1985 Arrival Date: 09/06/2016 Time: 15:54 Bed I5 / M5 Private MD: Diagnosis: Cellulitis of face-LEFT, EXTENDING INTO SUBMANDIBULAR SPACE;Cellulitis of neck Presentation: 09/06 16:01 Presenting complaint: Patient states: seen here for swelling and pain to left pml jaw. started on abx and pain meds and sent home. this AM noted increased swelling and redness to jaw and neck. seen at and told to come to ED for CT scans. Adult Sepsis Screening: The patient does not have new or worsening altered mentation. Patient's respiratory rate is less than 22. Systolic blood pressure is greater than 100. Patient has a qSOFA score of 0- Negative Sepsis Screen. Suicide/Homicide risk assessment- the patient denies having any suicidal and/or homicidal ideations and does not present with any other emotional, behavioral or mental health complaints. Status: Patient is not a bilingual customer service specialist or dependent. Transition of care: patient was not received from another setting of care. 16:01 Acuity: CRISTIN Level 3 pml 16:01 Method Of Arrival: Walkin/Carried/Asstd pml Triage Assessment: 16:02 General: Appears in no apparent distress, Behavior is appropriate for age, cooperative. pml Pain: Location: mouth and neck Pain currently is 9 out of 10 on a pain scale. HIV screening NA for this visit Offered previously. 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 amoxicillin 500 mg Oral cap 1 cap every 8 hours - PMHx: none; - PSHx: Knee Arthroplasty, Right; right and left groin surgery; Ear Tubes; - Social history: Smoking status: Electronic cigarettes No barriers to communication noted, The patient speaks fluent Haitian, Speaks appropriately for age. - Family history: Not pertinent. - : The pt / caregiver states he / she is not on anticoagulants. Home medication list is obtained from the patient. - Exposure Risk Screening:: None identified. Screenin:54 Screening information is obtained from the patient. Fall risk: No risks identified. ck1 Assistance ADL's: requires no assistance with activities of daily living. Abuse/DV Screen: The patient / caregiver reports he/she is: not in a situation that causes fear, pain or injury. Nutritional screening: No deficits noted. Advance Directives: Currently, there is no health care proxy. home support is adequate. Assessment: 16:54 General: Appears in no apparent distress, Behavior is appropriate for age, cooperative. ck1 Pain: Location: left cheek and left jaw Pain currently is 9 out of 10 on a pain scale. Neurological: Level of Consciousness is awake, alert, obeys commands, Oriented to person, place, time. EENT: Oral mucosa is moist. Respiratory: Airway is patent Respiratory effort is unlabored, Respiratory pattern is regular, symmetrical. GI: No deficits noted. Derm: Swollen area noted on left cheek and left jaw. Musculoskeletal: Circulation, motion, and sensation intact Range of motion intact in all extremities. 17:48 General: Appears in no apparent distress, comfortable, Behavior is appropriate for age, jmb cooperative, Patient laying on stretcher, appears comfortable. Patient voices no complaints at this time. . Neurological: Level of Consciousness is awake, alert, obeys commands, Oriented to person, place, time, Shipping Receiving Manager are equal bilaterally Speech is normal, Facial symmetry appears normal, Facial symmetry: tongue is midline. Respiratory: Airway is patent Respiratory effort is even, unlabored, Respiratory pattern is regular, symmetrical. 18:42 Reassessment: Patient appears in no apparent distress at this time. resting quietly on ck1 stretcher. No acute distress noted at this time. Call light in reach, SO at bedside. Will continue to monitor patient. 19:15 General: Appears in no apparent distress, comfortable, Behavior is appropriate for age, jmb cooperative, Patient laying on stretcher, appears comfortable. NO voiced complaints at this time. . Neurological: Level of Consciousness is awake, alert, obeys commands, Oriented to person, place, time. Respiratory: Airway is patent Respiratory effort is even, unlabored, Respiratory pattern is regular, symmetrical. 20:21 General: Appears in no apparent distress, comfortable, Behavior is appropriate for age, jmb cooperative. Neurological: Level of Consciousness is awake, alert, obeys commands, Oriented to person, place, time. Respiratory: Airway is patent Respiratory effort is even, unlabored, Respiratory pattern is regular, symmetrical. 21:35 General: Appears in no apparent distress, comfortable, Behavior is appropriate for age, jmb cooperative, Report given to ems and danelle marx RN at [facility]. Neurological: Level of Consciousness is awake, alert, obeys commands, Oriented to person, place, time. Respiratory: Airway is patent Respiratory effort is even, unlabored, Respiratory pattern is regular, symmetrical. Vital Signs: 15:57 BP 137 / 74 RA Sitting (auto/lg); Pulse 96; Resp 18; Temp 97.0(T); Pulse Ox 100% on bnb R/A; Weight 81.65 kg; Height 5 ft. 8 in. (172.72 cm); Pain 9/10; 17:33 BP 113 / 59; Pulse 95; Resp 18; Temp 98.5(O); Pulse Ox 100% on R/A; Pain 4/10; ck1 21:34 BP 131 / 77; Pulse 72; Resp 18; Temp 99.5(TE); Pulse Ox 100% on R/A; Pain 8/10; nb2 15:57 Body Mass Index 27.37 (81.65 kg, 172.72 cm) b Vitals: 15:57 Log In Time: September 06, 2016 at 15:55. b ED Course: 15:56 Patient visited by Aidee Barnes PCA. bnb 15:56 Patient moved to Waiting bnb 15:58 Patient moved to Pre RCE bnb 16:02 Triage Initiated pml 16:03 Patient visited by Kira Stapleton RN. pml 16:13 Patient moved to Triage 1 pml 16:25 Vinnie Contreras [facility]. ar2 16:25 Fidelia Mejia MD is Attending Physician. ar2 16:26 Patient visited by Vinnie Contreras PA-C. ar2 16:42 Patient moved to I5 / M5 pml 16:47 Patient visited by Gladys Montiel PCA. ar3 16:53 CBC with Diff Sent. ck1 16:53 MED Profile Sent. ck1 16:53 Lactic Acid (Allen tube on ice) Sent. ck1 16:54 The patient / caregiver is instructed regarding the plan of care and ED course. ck1 16:54 -Blood Culture Sent. ck1 16:54 Inserted saline lock: 20 gauge in right antecubital area and blood collected. The ck1 patient tolerated the procedure well. 17:20 Patient visited by Lillie Soriano,TIERA. ck1 17:50 Patient visited by Jignesh Barnes RN. jmb 18:02 [facility] Payment Agreement was scanned into [employer] and attached to record. zo 18:04 PHCP role handed off by Vinnie Contreras PA-C ck7 18:04 Sivakumar Ramos RPA-C is PHCP. ck7 18:20 Patient visited by Lillie Soriano,TIERA. ck1 18:43 Patient visited by Lillie Soriano,TIERA. ck1 18:56 CT Neck With Contrast Returned. EDMS 19:16 Patient visited by Jignesh Barnes RN. jmb 19:50 Attending Physician role handed off by Fidelia Mejia MD mm11 19:50 Logan Ryan DO is Attending Physician. mm11 20:22 Patient visited by Jignesh Barnes RN. jmb 21:34 Patient visited by Mirtha Moreland. nb2 21:35 No procedures done that require assistance. b 09/07 12:38 T-Sheet-- Draft Copy was scanned into [employer] and attached to record. gb 12:39 Radiology Report was scanned into [employer] and attached to record. gb Administered Medications: 09/06 16:56 Drug: NS 0.9% 1000 ml [sodium chloride 0.9 % intravenous solution] Route: IV; Rate: jmb bolus; Site: right antecubital; 16:56 Drug: morphine 4 mg [morphine 4 mg/mL intravenous cartridge (1 mL)] Route: IVP; Site: jmb right antecubital; 17:33 Follow up: BP 113 / 59; Pulse 95 bpm; Resp 18 bpm; Temp 98.5 Oral; Pulse Ox 100% RA; ck1 Pain 4/10 Adult; Response: Confirmed pt not driving.; No Adverse Reaction; Pain is decreased 18:25 Follow up: Response: No Adverse Reaction jmb 17:04 Drug: Ampicillin-Sulbactam Sodium 3 grams [ampicillin-sulbactam 1.5 gram solution for jmb injection] Route: IVPB; Infused Over: 30 mins; Site: right antecubital; 17:33 Follow up: IV Status: Completed infusion ck1 18:25 Follow up: IV Status: Completed infusion [facility] 18:25 Drug: morphine 2 mg [morphine 2 mg/mL intravenous cartridge (1 mL)] Route: IVP; Site: [facility] left forearm; 20:08 Drug: NS 0.9% 1000 ml [sodium chloride 0.9 % intravenous solution] Route: IV; Rate: 150 jmb mL/hr; Site: left hand; Point of Care Testing: Urine : 16:47 hCG Reading: Negative; Control Reading: Positive; ar3 Ranges: Order Results: Lab Order: CBC with Diff; SPEC'M 09/06/16 16:51 Test: WHITE BLOOD COUNT; Value: 10.3; Range: 4.0-10.0; Abnormal: Above high normal; Units: K/mm3; Status: F Test: RED BLOOD COUNT; Value: 4.21; Range: 4.00-5.40; Units: M/mm3; Status: F Test: HEMOGLOBIN; Value: 12.9; Range: 12.0-16.0; Units: g/dl; Status: F Test: HEMATOCRIT; Value: 39.7; Range: 36.0-47.0; Units: %; Status: F Test: MEAN CORPUSCULAR VOLUME; Value: 94.2; Range: 80.0-96.0; Units: fl; Status: F Test: MEAN CORPUSCULAR HEMOGLOBIN; Value: 30.7; Range: 27.0-33.0; Units: pg; Status: F Test: MEAN CORPUSCULAR HGB CONC; Value: 32.6; Range: 32.0-36.5; Units: g/dl; Status: F Test: RED CELL DISTRIBUTION WIDTH; Value: 11.9; Range: 11.5-14.5; Units: %; Status: F Test: PLATELET COUNT, AUTOMATED; Value: 252; Range: 150-450; Units: k/mm3; Status: F Test: NEUTROPHILS %; Value: 78.9; Range: 36.0-66.0; Abnormal: Above high normal; Units: %; Status: F Test: LYMPH %; Value: 14.8; Range: 24.0-44.0; Abnormal: Below low normal; Units: %; Status: F Test: MONO %; Value: 4.1; Range: 0.0-5.0; Units: %; Status: F Test: EOS %; Value: 0.4; Range: 0.0-3.0; Units: %; Status: F Test: BASO %; Value: 0.2; Range: 0.0-1.0; Units: %; Status: F Test: LARGE UNSTAINED CELL %; Value: 1.6; Range: 0.0-4.0; Units: %; Status: F Test: NEUTROPHILS #; Value: 8.1; Range: 1.8-7.7; Abnormal: Above high normal; Units: K/mm3; Status: F Test: LYMPH #; Value: 1.5; Range: 1.5-4.5; Units: K/mm3; Status: F Test: MONO #; Value: 0.4; Range: 0.0-0.8; Units: K/mm3; Status: F Test: EOS #; Value: 0.0; Range: 0.0-0.50; Units: K/mm3; Status: F Test: BASO #; Value: 0.0; Range: 0.0-0.2; Units: K/mm3; Status: F Test: LARGE UNSTAINED CELL #; Value: 0.2; Range: 0.0-0.4; Units: K/mm3; Status: F Lab Order: [facility]; [facility]' 09/06/16 16:51 Test: GLUCOSE, FASTING; Value: 87; Range: 70-105; Units: MG/DL; Status: F Test: BLOOD UREA NITROGEN; Value: 7; Range: 7-18; Units: MG/DL; Status: F Test: CREATININE FOR GFR; Value: 0.60; Range: 0.55-1.02; Units: MG/DL; Status: F Test: GLOMERULAR FILTRATION RATE; Value: > 60.0; Range: >60; Status: F Test: SODIUM LEVEL; Value: 137; Range: 136-145; Units: MEQ/L; Status: F Test: POTASSIUM SERUM; Value: 3.8; Range: 3.5-5.1; Units: MEQ/L; Status: F Test: CHLORIDE LEVEL; Value: 101; Range: 98-107; Units: MEQ/L; Status: F Test: CARBON DIOXIDE LEVEL; Value: 26; Range: 21-32; Units: MEQ/L; Status: F Test: ANION GAP; Value: 10; Range: 8-16; Units: MEQ/L; Status: F Test: CALCIUM LEVEL; Value: 8.8; Range: 8.5-10.1; Units: MG/DL; Status: F Test Note: ; Units are mL/min/1.73 m2 Chronic Kidney Disease Staging per NKF: Stage I & II GFR >=60 Normal to Mildly Decreased Stage III GFR 30-59 Moderately Decreased Stage IV GFR 15-29 Severely Decreased Stage V GFR <15 Very Little GFR Left ESRD GFR <15 on HOG RIBBER Lab Order: Lactic Acid (Allen tube on ice); SPEC' 09/06/16 16:51 Test: LACTIC ACID SEPSIS PROTOCOL; Value: 0.5; Range: 0.4-2.0; Units: MMOL/L; Status: F Lab Order: -Blood Culture; [facility]' 09/06/16 16:51 Test: BLOOD CULTURE; Value: No growth after 24 hours . All specimens observed; Status: F Test: BLOOD CULTURE; Value: for 5 days. Results final at that time.; Status: F Test: BLOOD CULTURE; Value: No Growth after 48 hours. All Specimens observed; Status: F Test: BLOOD CULTURE; Value: for 7 days. Results final at that time.; Status: F Lab Order: BLOOD CULTURES; [facility]' 09/06/16 17:00 Test: BLOOD CULTURE; Value: No growth after 24 hours . All specimens observed; Status: F Test: BLOOD CULTURE; Value: for 5 days. Results final at that time.; Status: F Test: BLOOD CULTURE; Value: No Growth after 48 hours. All Specimens observed; Status: F Test: BLOOD CULTURE; Value: for 7 days. Results final at that time.; Status: F Radiology Order: CT Neck With Contrast Test: CT Neck With Contrast REASON FOR EXAMINATION: left facial abscess; ; CT of the soft tissues of the neck with contrast; Clinical history: left facial abscess.; Technique: Multiple axial CT images were obtained from the base of the skull to the upper thorax afte; r administration of nonionic intravenous contrast. Coronal and sagittal reconstructions were also obt; ained.; Findings: There is a ill-defined area of low attenuation in the deep soft tissues of the left mandibu; lar region, measuring 2.0 x 1.0 x 1.6 cm. Moderate surrounding swelling and inflammatory stranding is; also noted. The visualized paranasal sinuses are clear. The pterygopalatine fossa, pterygoid plates; and pterygoid muscles are unremarkable. The mucosa of the naso- and oropharynx appears unremarkable.; The hypopharynx and larynx show no pathology. The visualized osseous structures are intact. The airwa; y is patent. No focal mass is appreciated. There is no evidence of lymphadenopathy. The thyroid gland; appears unremarkable.; Impression:; 1. Ill-defined area of low attenuation in the left mandibular region with surrounding soft tissue swe; lling and inflammation. The findings are suspicious for cellulitis with possible early developing abs; cess. Clinical correlation is suggested.; 2. No suspicious osseous abnormalities.; ; Outcome: 17:25 CT Study completed. ck1 19:22 ER care complete, transfer ordered by Provider. ck7 21:35 Discharge Assessment: Patient awake, alert and oriented x 3. No cognitive and/or jmb functional deficits noted. Patient verbalized understanding of disposition instructions. Patient awake and alert. obeys commands, Oriented to person, place and time. Patient verbalized understanding of disposition instructions. Patient has no functional deficits. patient administered narcotics - yes. Patient was admitted to the hospital or transferred to another facility. The following High Risk Discharge criteria are identified: None. Transferred to [facility]. by EMS ground [facility] ambulance report to accompanying personnel Clara Benavidez and Radha Khoury, Transfer form completed. x-rays sent w/ patient. Condition: stable. Property :Personal belongings accompany Pt. 21:39 Patient left the ED. jmb Signatures: Dispatcher [employer] EDMS Briana Bowling, Reg Reg Lillie Awad,RN RN ck1 Kali Cherry Matthew, DO DO mm11 Vinnie Contreras, PA-C PA-C ar2 Gladys Montiel, CORRECTION OFFICER PENITENTIARY CORRECTION OFFICER PENITENTIARY ar3 Kira Stapleton RN RN pml Sivakumar Ramos, RPA-C RPA-Cck7 Jignesh Barnes RN RN jmb Baart, Nicole nb2 Becker, Brittney, CORRECTION OFFICER PENITENTIARY CORRECTION OFFICER PENITENTIARY bnb Chart Complete MTDD
== END 2016-09-06 21:39 | disposition short-term general hospital (02) ==
LOC: M ED 15:54
DX: L03.211 Cellulitis of face (principal); K12.2 Cellulitis and abscess of mouth; F17.290 Nicotine dependence, other tobacco product, uncomplicated
CPT/HCPCS: 36415; 70491; 80048; 81025; 83605; 85025; 87040; 96361; 96365; 96374; 96376; 99285; Q9967

== ENCOUNTER → 2017-10-18 | Outpatient (CLI) | payer OTHER ==
[2017-10-18 13:22] LABS: BASO % 0.5 % (0.0-1.0); EOS # 0.1 10^3/uL (0.0-0.50); EOS % 0.8 % (0.0-3.0); HEMATOCRIT 40.8 % (36.0-47.0); HEMOGLOBIN 13.6 g/dl (12.0-16.0); IMMATURE GRANULOCYTE % 0.2 % (0-3.0); LYMPH # 1.6 10^3/uL (1.5-4.5); LYMPH % 25.4 % (24.0-44.0); MEAN CORPUSCULAR HEMOGLOBIN 30.5 pg (27.0-33.0); MEAN CORPUSCULAR HGB CONC 33.3 g/dl (32.0-36.5); MEAN CORPUSCULAR VOLUME 91.5 fl (80.0-96.0); MONO # 0.4 10^3/uL (0.0-0.8); MONO % 6.1 % (0.0-5.0); NEUTROPHILS # 4.2 10^3/uL (1.8-7.7); PLATELET COUNT, AUTOMATED 332 10^3/uL (150-450); RED BLOOD COUNT 4.46 10^6/uL (4.00-5.40); RED CELL DISTRIBUTION WIDTH 12.2 % (11.5-14.5); WHITE BLOOD COUNT 6.2 10^3/uL (4.0-10.0)
[2017-10-18 13:51] LABS: AMMONIA 14 uMOL/L (<32)
[2017-10-18 14:03] LABS: ALBUMIN/GLOBULIN RATIO 0.98 (1.00-1.93); ALKALINE PHOSPHATASE 56 U/L (45-117); ALT/SGPT 24 U/L (12-78); ANION GAP 7 MEQ/L (8-16); AST/SGOT 14 U/L (7-37); BILIRUBIN,TOTAL 0.3 MG/DL (0.2-1.0); BLOOD UREA NITROGEN 6 MG/DL (7-18); CALCIUM LEVEL 9.2 MG/DL (8.5-10.1); CARBON DIOXIDE LEVEL 27 MEQ/L (21-32); CHLORIDE LEVEL 105 MEQ/L (98-107); CREATININE FOR GFR 0.71 MG/DL (0.55-1.30); FREE T4 1.23 NG/DL (0.76-1.46); GLOMERULAR FILTRATION RATE > 60.0 (>60); GLUCOSE, FASTING 88 MG/DL (70-100); POTASSIUM SERUM 4.6 MEQ/L (3.5-5.1); SODIUM LEVEL 139 MEQ/L (136-145); THYROID STIMULATING HORMONE 0.034 uIU/ML (0.358-3.740); TOTAL PROTEIN 8.1 GM/DL (6.4-8.2)
== END ==
LOC: M ADAMS 12:06
DX: R42 Dizziness and giddiness (principal); R53.83 Other fatigue

== ENCOUNTER → 2017-10-28 | Outpatient (CLI) | payer OTHER | LOC: M RAD 13:17 | DX: R94.6 Abnormal results of thyroid function studies (principal) ==

== ENCOUNTER → 2017-11-08 | Outpatient (REF) | payer OTHER ==
[2017-11-08 13:25] LABS: FREE T3 4.2 PG/ML (2.2-4.0); FREE T4 1.34 NG/DL (0.76-1.46); THYROID STIMULATING HORMONE 0.007 uIU/ML (0.358-3.740)
[2017-11-08 14:53] LABS: CORTISOL AM 22.9 UG/DL (4.3-22.4)
[2017-11-10 00:06] LABS: Lyme Disease IgG/IgM Antibodie <0.91 ISR (0.00-0.90); Lyme Disease IgM Ab Quantitati <0.80 index (0.00-0.79)
== END ==
LOC: M SFHCADAM 09:06
DX: E05.90 Thyrotoxicosis, unspecified without thyrotoxic crisis or storm (principal)

== ENCOUNTER → 2017-11-11 | Outpatient (CLI) | payer OTHER | LOC: M RAD 17:03 | DX: G43.009 Migraine without aura, not intractable, without status migrainosus (principal); R51 Headache ==

== ENCOUNTER → 2017-11-12 | Outpatient (REF) | payer OTHER ==
[2017-11-16 08:06] LABS: THRYOGLOBULIN ANTIBODIES (ATA) < 1.0 IU/mL (0.0-0.9); THYROID STIMULATING IMMUNOGLOB <0.10 IU/L (0.00-0.55)
== END ==
LOC: M SFHCADAM 15:52
DX: E05.90 Thyrotoxicosis, unspecified without thyrotoxic crisis or storm (principal)

== ENCOUNTER → 2017-11-26 | Outpatient (REF) | payer OTHER ==
[2017-11-26 13:30] LABS: PROLACTIN 4.4 NG/ML; THYROID PEROXIDASE ANTIBODY 42.5 U/ML (<60.0)
[2017-11-30 08:11] LABS: THYROID STIMULATING IMMUNOGLOB <0.10 IU/L (0.00-0.55)
== END ==
LOC: M LABDRWAD 12:43
DX: O92.6 Galactorrhea (principal); E27.9 Disorder of adrenal gland, unspecified; E05.00 Thyrotoxicosis with diffuse goiter without thyrotoxic crisis or storm
CPT/HCPCS: 84146

== ENCOUNTER → 2017-12-02 | Outpatient (CLI) | payer OTHER | LOC: M RAD 12:21 | DX: E05.90 Thyrotoxicosis, unspecified without thyrotoxic crisis or storm (principal) | CPT/HCPCS: 78012 ==

== ENCOUNTER → 2018-02-28 | Outpatient (CLI) | payer OTHER | LOC: M ADAMS 11:32 | DX: E05.00 Thyrotoxicosis with diffuse goiter without thyrotoxic crisis or storm (principal) | CPT/HCPCS: 84443 ==

== ENCOUNTER → 2018-04-18 | Outpatient (REF) | payer OTHER ==
[2018-04-18 14:05] LABS: HCG, SERUM QUANTITATIVE 66223 MIU/ML
== END ==
LOC: M LABDRWAD 12:30
DX: N91.1 Secondary amenorrhea (principal)

== ENCOUNTER → 2018-04-20 | Outpatient (REF) | payer OTHER ==
[2018-04-20 15:20] LABS: HCG, SERUM QUANTITATIVE 64974 MIU/ML
== END ==
LOC: M LABDRWAD 12:11
DX: N91.1 Secondary amenorrhea (principal)

== ENCOUNTER → 2018-04-22 | Outpatient (CLI) | payer OTHER ==
[2018-04-22 13:38] LABS: HCG, SERUM QUANTITATIVE 60666 MIU/ML
== END ==
LOC: M ADAMS 10:03
DX: O20.0 Threatened abortion (principal); Z3A.00 Weeks of gestation of pregnancy not specified
CPT/HCPCS: 84702

== ENCOUNTER → 2018-05-18 | Outpatient (REF) | payer OTHER ==
[2018-05-18 20:13] LABS: HCG, SERUM QUANTITATIVE 167 MIU/ML
== END ==
LOC: M LAB REF 05-19 18:54
DX: O02.1 Missed abortion (principal)
CPT/HCPCS: 84702

== ENCOUNTER → 2018-06-07 | Outpatient (REF) | payer OTHER ==
[2018-06-07 19:33] LABS: HCG, SERUM QUANTITATIVE 4 MIU/ML
== END ==
LOC: M LABDRWAD 18:52
DX: O03.9 Complete or unspecified spontaneous abortion without complication (principal)

== ENCOUNTER 2018-08-22 09:37 | Emergency (ER) | payer OTHER ==
[~2018-08-22] VITALS: Ht 172.7 cm; Wt 84.5 kg
[~2018-08-22 09:37] MED LIST: ACET30TAB PO; AMOX500C PO; IBUP1TAB6 PO; PROP10TA56
[2018-08-22 10:24] LABS: BASO % 0.3 % (0.0-1.0); EOS % 0.2 % (0.0-3.0); HEMATOCRIT 36.5 % (36.0-47.0); HEMOGLOBIN 12.1 g/dl (12.0-15.5); LYMPH % 17.4 % (24.0-44.0); MEAN CORPUSCULAR HEMOGLOBIN 28.7 pg (27.0-33.0); MEAN CORPUSCULAR HGB CONC 33.2 g/dl (32.0-36.5); MEAN CORPUSCULAR VOLUME 86.5 fl (80.0-96.0); MONO # 0.5 10^3/uL (0.0-0.8); MONO % 8.3 % (0.0-5.0); NEUTROPHILS # 4.3 10^3/uL (1.8-7.7); NEUTROPHILS % 73.5 % (36.0-66.0); PLATELET COUNT, AUTOMATED 294 10^3/uL (150-450); RED BLOOD COUNT 4.22 10^6/uL (4.00-5.40); WHITE BLOOD COUNT 5.9 10^3/uL (4.0-10.0)
--- NOTE | 2018-08-22 10:57 | REP ---
Clinical: Vaginal bleeding for dating and viability. Technique: Transabdominal and transvaginal first trimester obstetrical ultrasound with color Doppler evaluation. Findings: Anteverted uterus includes single live early intrauterine . Gestational sac with yolk sac and pole identified. CRL of 18 mm corresponds to 8 weeks 2 days gestational age with estimated date of delivery 04/01/2019. heart rate equals 168 beats per minute. Moderate subchorionic hemorrhage inferior to the gestational sac measures approximately 4.3 x 2.0 x 2.2 cm. Bilateral maternal ovaries are normal in appearance and vascularity. Right ovary measures 3.0 x 2.7 x 2.9 cm with 1.6 cm corpus luteal cyst; RI 0.53. The left ovary measures 2.6 x 1.7 x 1.3 cm; RI 0.60. Impression: 1. Single live intrauterine measuring at 8 weeks 2 days gestational age. Complete anatomical assessment should be performed at 19-20 weeks. 2. Moderate subchorionic hemorrhage noted. Electronically Signed by Collin Saab MD 08/22/2018 10:48 A
[2018-08-22 12:04] VITALS: BP 131/76
== END 2018-08-22 12:04 | disposition home or self-care (01) ==
LOC: M ED 09:37
DX: O20.8 Other hemorrhage in early pregnancy (principal); O09.521 Supervision of elderly multigravida, first trimester; Z87.59 Personal history of other complications of pregnancy, childbirth and the puerperium; Z3A.08 8 weeks gestation of pregnancy; Z88.8 Allergy status to other drugs, medicaments and biological substances

== ENCOUNTER → 2018-09-14 | Outpatient (REF) | payer OTHER ==
[2018-09-14 13:25] LABS: BASO % 0.5 % (0.0-1.0); EOS % 0.5 % (0.0-3.0); HEMATOCRIT 34.8 % (36.0-47.0); HEMOGLOBIN 11.4 g/dl (12.0-15.5); LYMPH # 1.3 10^3/uL (1.5-4.5); LYMPH % 22.6 % (24.0-44.0); MEAN CORPUSCULAR HEMOGLOBIN 28.4 pg (27.0-33.0); MEAN CORPUSCULAR HGB CONC 32.8 g/dl (32.0-36.5); MEAN CORPUSCULAR VOLUME 86.6 fl (80.0-96.0); MONO # 0.4 10^3/uL (0.0-0.8); MONO % 7.1 % (0.0-5.0); NEUTROPHILS # 3.9 10^3/uL (1.8-7.7); NEUTROPHILS % 69.1 % (36.0-66.0); PLATELET COUNT, AUTOMATED 293 10^3/uL (150-450); RED BLOOD COUNT 4.02 10^6/uL (4.00-5.40); WHITE BLOOD COUNT 5.6 10^3/uL (4.0-10.0)
[2018-09-14 14:05] LABS: HEPATITIS C VIRUS ABY INDEX < 0.0 INDEX (<0.8); HIV 1&2 SCREEN CENTAUR NEGATIVE (NEGATIVE); RUBELLA IgG QUALITATIVE IMMUNE (IMMUNE)
[2018-09-14 15:42] LABS: CHLAMYDIA DNA AMPLIFICATION NEGATIVE (NEGATIVE); GC DNA AMPLIFICATION NEGATIVE (NEGATIVE)
== END ==
LOC: M LABDRWAD 12:25
PROVIDERS: ATTEND Obstetrics & Gynecology
DX: O09.521 Supervision of elderly multigravida, first trimester (principal); Z3A.00 Weeks of gestation of pregnancy not specified

== ENCOUNTER → 2018-10-31 | Outpatient (CLI) | payer OTHER ==
[~2018-10-31] MED LIST changes: +ACET-716 PO; -ACET30TAB PO
--- NOTE | 2018-11-01 11:12 | REP ---
Clinical: Anatomical evaluation. Comparison: 08/22/2018 . Findings: Examination demonstrates a single live intrauterine in breech presentation. motion is identified by technologist. Placenta is noted anterior and grade 1 without evidence for placenta previa or abruption. Marginal cord insertion on the placenta. Amniotic fluid volume is normal. Cervix measures 3.7 cm in length and appears closed. No evidence for nuchal cord. Gestational age by LMP 20 weeks 4 days with CEDRIC 03/16/2019 . Gestational age by current measurements 18 weeks 3 days with CEDRIC 03/31/2019 . FHR equals 150 beats per minute. BPD 4.1 cm 18 weeks 4 days HC 15.3 70 18 weeks 2 days AC 13.8 cm 19 weeks 1 day FL 2.6 cm 18 weeks 0 days HL 2.6 cm 18 weeks 1 day HC/AC ratio 1.12 Estimated weight 247 grams ( 52nd percentile based on age by current measurements ). Anatomical assessment demonstrates normal structures including cranium, cavum, cerebellum/posterior fossa, facial profile, lungs, diaphragm, stomach, cord insertion/three-vessel cord, kidneys/bladder, spine, and upper extremities. Right choroid plexus cyst. Limited evaluation of the facial features, heart/ventricular outflow tracts, and lower extremities. Impression: 1. Single live intrauterine with appropriate interval growth as compared to first ultrasound. 2. Marginal cord insertion on the placenta. 3. Choroid plexus cysts and anatomical limitations as noted above warrant reevaluation and follow-up. Electronically Signed by Collin Saab MD 11/01/2018 11:03 A
== END ==
LOC: M RAD 11:02
PROVIDERS: ATTEND Obstetrics & Gynecology
DX: O35.0XX0 Maternal care for (suspected) central nervous system malformation in fetus, not applicable or unspecified (principal); Z3A.18 18 weeks gestation of pregnancy

== ENCOUNTER → 2018-11-16 | Outpatient (CLI) | payer OTHER ==
--- NOTE | 2018-11-16 15:33 | REP ---
OB ULTRASOUND: Real-time sonographic evaluation of the gravid uterus is performed. There is a single living intrauterine gestation. Estimated gestational age 28 weeks 4 days, EDC 04/11/2019. Today's measurements indicate appropriate growth. BPD 49 mm = 20 weeks 5 days, 54th percentile HC 181 mm = 20 weeks 4 days, 48th percentile AC 157 mm = 20 weeks 6 days, 56th percentile Femur length 34 mm = 20 weeks 6 days, 56th percentile HC/AC ratio 1.15 within normal range. Estimated weight 379 grams, 54th percentile. heart rate 136 beats per minute. SEEN/GROSSLY UNREMARKABLE Lateral ventricles Yes Posterior fossa Yes Upper lip Yes Four-chamber heart Yes Echogenic focus in the left ventricle likely related to chordae tendineae. LVOT Yes RVOT Yes Stomach Yes Cord insertion Yes Three vessel cord Yes Kidneys Yes Bladder Yes Spine No position: Vertex. Placenta: Anterior and grade 0 with no previa or abruption. Amniotic fluid: Within normal limits. Cervix is closed and measures 4.4 cm in length. Electronically Signed by Yash Allen MD 11/17/2018 11:00 A
== END ==
LOC: M RAD 13:41
PROVIDERS: ATTEND Obstetrics & Gynecology
DX: O09.522 Supervision of elderly multigravida, second trimester (principal); Z3A.28 28 weeks gestation of pregnancy

== ENCOUNTER → 2018-12-14 | Outpatient (CLI) | payer OTHER ==
[2018-12-14 12:20] LABS: HEMATOCRIT 30.7 % (36.0-47.0); HEMOGLOBIN 9.9 g/dl (12.0-15.5); MEAN CORPUSCULAR HEMOGLOBIN 28.7 pg (27.0-33.0); MEAN CORPUSCULAR HGB CONC 32.2 g/dl (32.0-36.5); PLATELET COUNT, AUTOMATED 235 10^3/uL (150-450); RED BLOOD COUNT 3.45 10^6/uL (4.00-5.40); WHITE BLOOD COUNT 5.5 10^3/uL (4.0-10.0)
== END ==
LOC: M LABDRWAD 08:58
PROVIDERS: ATTEND Obstetrics & Gynecology
DX: O09.522 Supervision of elderly multigravida, second trimester (principal); Z3A.00 Weeks of gestation of pregnancy not specified

== ENCOUNTER → 2019-02-02 | Outpatient (CLI) | payer OTHER ==
[~2019-02-02] MED LIST changes: +IRON27TA2 PO; +PRENTAB9 PO
--- NOTE | 2019-02-02 23:53 | REP ---
Clinical: Anatomical evaluation. Comparison: Growth 11/16/2018 . Findings: Examination demonstrates a single live intrauterine in cephalic presentation. motion is identified by technologist. Placenta is noted anterior and grade to without evidence for placenta previa or abruption. Amniotic fluid volume is normal. Cervix measures 4.3 cm in length and appears closed. No evidence for nuchal cord. Gestational age by LMP 34 weeks 0 days with [facility] 03/16/2019 . Gestational age by current measurements 33 weeks 2 days with [facility] 03/21/2019 . FHR equals 134 beats per minute. BPD 8.3 cm 33 weeks 2 days HC 30.5 cm 34 weeks 0 days AC 29.5 cm 33 weeks 3 days FL 6.5 cm 33 weeks 2-day HL 5.6 cm 32 weeks 4 days HC/AC ratio 1.04 Estimated weight 2200 grams ( 80th percentile). Amniotic fluid index: 20.5 cm Umbilical cord SD ratio: 2.67 Impression: Single live intrauterine in cephalic presentation demonstrating appropriate interval growth. Electronically Signed by Collin Saab MD 02/02/2019 11:44 P
== END ==
LOC: M RAD 10:05
PROVIDERS: ATTEND Specialist
DX: O36.5939 Maternal care for other known or suspected poor fetal growth, third trimester, other fetus (principal); Z3A.33 33 weeks gestation of pregnancy

== ENCOUNTER 2019-02-08 21:22 | Outpatient (CLI) | payer OTHER ==
[~2019-02-08] VITALS: Ht 172.7 cm; Wt 95.1 kg
[~2019-02-08 21:22] MED LIST changes: -IRON27TA2 PO; -PRENTAB9 PO
[2019-02-08 21:46] VITALS: BP 117/72
[2019-02-08] MEDS ORDERED: PRENTAB9 PO (22:27)
[2019-02-08] MEDS ORDERED: IRON27TA2 PO (22:28)
== END 2019-02-08 22:55 | disposition home or self-care (01) ==
LOC: M LDO 21:22
PROVIDERS: ATTEND Advanced Practice Midwife
DX: O36.8130 Decreased fetal movements, third trimester, not applicable or unspecified (principal); Z3A.32 32 weeks gestation of pregnancy
CPT/HCPCS: 59025; G0378; G0463

== ENCOUNTER → 2019-02-27 | Outpatient (CLI) | payer OTHER ==
[~2019-02-27] MED LIST changes: +IRON27TA2 PO; +PRENTAB9 PO
--- NOTE | 2019-02-28 06:07 | REP ---
Clinical: Growth evaluation. Comparison: 02/02/2019 . Findings: Examination demonstrates a single live intrauterine in cephalic presentation. motion is identified by technologist. Placenta is noted anterior and grade zero without evidence for placenta previa or abruption. Amniotic fluid volume is normal. Cervix appears closed. No evidence for nuchal cord. Gestational age by LMP 37 weeks 4 days with [facility] 03/16/2019 . Gestational age by current measurements 36 weeks 1 day with [facility] 03/26/2019 . FHR equals 143 beats per minute. BPD 9.4 cm 38 weeks 0 days HC 33.6 cm 38 weeks 3 days AC 31.7 cm 35 weeks 5 days FL 6.8 cm 35 weeks 1 day HL 5.8 cm 33 weeks 2 days HC/AC ratio 1.06 Estimated weight 2838 grams ( 63rd percentile based on selected age by first ultrasound at 35 weeks 2 days ). Echogenic focus within the left cardiac ventricle again noted and consistent with prominent chordae tendineae. Impression: Single live intrauterine in cephalic presentation demonstrating appropriate interval growth. Electronically Signed by Collin Saab MD 02/28/2019 05:59 A
== END ==
LOC: M RAD 10:18
PROVIDERS: ATTEND Advanced Practice Midwife
DX: O09.523 Supervision of elderly multigravida, third trimester (principal); Z3A.37 37 weeks gestation of pregnancy

== ENCOUNTER → 2019-03-02 | Outpatient (REF) | payer OTHER | LOC: M LAB REF 12:58 | PROVIDERS: ATTEND Advanced Practice Midwife | DX: O09.523 Supervision of elderly multigravida, third trimester (principal) ==

== ENCOUNTER 2019-03-25 07:24 | Inpatient (IN) | payer OTHER ==
[2019-03-25] VITALS (33 sets, daily range): BP systolic 91–154; BP diastolic 53–109
[~2019-03-25] VITALS: Ht 172.7 cm; Wt 97.3 kg
[2019-03-25] MEDS ORDERED: TUMS500C PO (07:38)
--- NOTE | 2019-03-25 08:06 | HPE ---
DATE OF ADMISSION: 03/25/2019 34-year-old, (G) 9, para (P) 5-0-3-5 female, at 39 and 0/7 weeks gestation by last menstrual period (LMP) and consistent with 8 week ultrasound, for labor induction. She has occasional contractions. She denies vaginal bleeding. OBSTETRICAL HISTORY: 1. August 1999 - vaginal delivery of 8 pound 2 ounce male . 2. July 2002 - 41 week vaginal delivery of 7 pound 3 ounce male . 3. 2004 - 39 week vaginal delivery 8 pound 10 ounce male infant. 4. 2009 - miscarriage. 5. 2011 - 39 week vaginal delivery 6 pound 7 ounce female infant. MEDICAL HISTORY: 1. History of seizure disorder. No current meds. 2. Migraines. SURGICAL HISTORY: 1. Right knee surgery. 2. Groin surgery for cellulitis. 3. Ear drum surgery. ALLERGIES: - CODEINE SOCIAL HISTORY: The patient is . She denies cigarettes, alcohol or drug use. She lives in [place]. FAMILY HISTORY: Noncontributory. PHYSICAL EXAMINATION: 126/76. Weight 213. She is in no apparent distress. Head and Neck Exam: Normal. Lungs: Clear. Heart: Regular rate and rhythm. Abdomen: Nontender. Gravid. heart tones category one. Sterile Vaginal Exam: 2 cm, 70%, -2, posterior, soft, vertex. Extremities: Nontender. LABS: Blood type O positive. Rubella immune. RPR nonreactive. GBS positive. ASSESSMENT: 34-year-old, G9, P5 female at 39 and 0/7 weeks gestation who presents for labor induction. PLAN: Patient is admitted on 03/25/2019. Risks of induction were discussed.
[2019-03-25] MEDS ORDERED: miSOPROStol 50 MCG 1/2 TAB (S0191) SL SCH (08:15)
[2019-03-25 08:54] LABS: MEAN CORPUSCULAR HEMOGLOBIN 23.9 pg (27.0-33.0); MEAN CORPUSCULAR VOLUME 77.1 fl (80.0-96.0); PLATELET COUNT, AUTOMATED 181 10^3/uL (150-450); RED BLOOD COUNT 3.76 10^6/uL (4.00-5.40); WHITE BLOOD COUNT 4.7 10^3/uL (4.0-10.0)
[2019-03-25] MEDS ORDERED: PENICILLIN G POTASSIUM IV 5 MU in D5W MINI-BAG PLUS 100 ML IV STA (10:03)
[2019-03-25] MEDS ORDERED: FENTANYL 2MCG/ML ROPIVACAINE 0.2% IN 0.9% NACL 100ML IVBAG As Ordered ONE (11:33)
[2019-03-25] MEDS ORDERED: NALOXONE INJ 0.4 MG/1 ML VIAL (J2310) IV PRN (13:30)
[2019-03-25] MEDS ORDERED: ONDANSETRON 4MG/2ML VIAL (J2405) IV PRN ×2 (13:30→18:45)
[2019-03-25] MEDS ORDERED: EPIDURAL/PCA KEYS XX PRN (13:30)
[2019-03-25] MEDS ORDERED: REFRIGERATOR IV KEYS XX PRN (13:30)
[2019-03-25] MEDS ORDERED: OXYTOCIN DRIP 30 UNITS in APPROPRIATE DILUENT 1 EA IV SCH (13:30)
[2019-03-25] MEDS ORDERED: FENTANYL/ROPIVACAINE/NACL BAG 100 ML EPIDURAL SCH (13:30)
[2019-03-25] MEDS ORDERED: diphenhydrAMINE INJ 50MG/ML VIAL (J1200) IV PRN (13:30)
[2019-03-25] MEDS ORDERED: LACTATED RINGER'S 1000 ML IV PRN (13:30)
[2019-03-25] MEDS ORDERED: EPIDURAL COMMENT XX SCH (13:30)
[2019-03-25] MEDS ORDERED: OXYTOCIN 30 UNITS IN 0.9% NaCl 500ML IV BAG (J2590) As Ordered ONE (13:33)
[2019-03-25] MEDS: ePHEDrine SULFATE 25 MG/5 ML(5MG/ML) SYRINGE IV PRN ×2 (13:36→13:45)
[2019-03-25] MEDS: LR 1,000 ML IV SCH ×2 (14:08→16:34)
[2019-03-25] MEDS ORDERED: PENICILLIN G POTASSIUM IV 2.5 MU in APPROPRIATE DILUENT 1 EA IV SCH (14:15)
[2019-03-25] MEDS ORDERED: ACETAMINOPHEN 500 MG TAB PO PRN (18:45)
[2019-03-25] MEDS ORDERED: METHYLERGONOVINE MALEATE 0.2 MG TAB PO PRN (18:45)
[2019-03-25] MEDS ORDERED: DIBUCAINE 1% OINTMENT 30GM TOP PRN (18:45)
[2019-03-25] MEDS ORDERED: ACETAMINOPHEN TAB 650MG DOSE (2X325MG) PO PRN (18:45)
[2019-03-25] MEDS ORDERED: DOCUSATE SODIUM 100 MG CAP PO PRN (18:45)
[2019-03-25] MEDS ORDERED: OXYTOCIN DRIP 30 UNITS in APPROPRIATE DILUENT 1 EA IV ONE (18:45)
[2019-03-25] MEDS ORDERED: MEASLES,MUMPS,RUBELLA VACCINE INJ (MMR-II) (90707) SC SCH (18:45)
[2019-03-25] MEDS ORDERED: IBUPROFEN 600 MG TAB PO PRN (18:45)
[2019-03-25] MEDS ORDERED: RHOGAM 300 MCG (1500 IU) INJ (J2790) IM SCH (18:45)
[2019-03-25] MEDS: IBUPROFEN 800 MG TAB PO PRN (22:06)
[2019-03-26 06:49] VITALS: BP 100/62
[2019-03-26] MEDS ORDERED: PRENATAL VITAMINS CHEWABLE TABLET PO SCH (09:00)
[2019-03-26] MEDS ORDERED: ACET-683 PO (11:55)
[2019-03-26] MEDS ORDERED: IBUP80TA PO (11:55)
--- NOTE | 2019-03-26 12:06 | DN ---
DATE: 03/25/2019 PRE-DELIVERY DIAGNOSIS: 39 weeks induction. POST-DELIVERY DIAGNOSIS: Delivered. PROCEDURE: Spontaneous vaginal delivery. BENCH ASSEMBLER BATTERY: Dr. Justin Pacheco. ANESTHESIA: Epidural. ESTIMATED BLOOD LOSS: 300 mL. FINDINGS: [id number]-ounce 4010 gram male . Apgars 8 and 9. DELIVER SUMMARY: After a short second stage of 15 minutes patient spontaneously delivered an [id number]-ounce male under epidural anesthesia. There was no nuchal cord. The shoulders delivered with ease. The cord was doubly clamped and cut. The was handed to the mother. Placenta delivered spontaneously and appeared to be intact. The patient received IV Pitocin after delivery of the placenta. There were no vaginal lacerations present. Sponge counts were correct.
[2019-03-26] MEDS: IBUPROFEN 800 MG TAB PO PRN (15:03)
[2019-03-26 18:00] VITALS: BP 109/56
== END 2019-03-26 18:45 | disposition home or self-care (01) | DRG 807 ==
LOC: M LDI 07:24 → M OBS 19:59
PROVIDERS: ADMIT Specialist; ATTEND Specialist
PROC: 10E0XZZ Delivery of Products of Conception, External Approach (ICD-10-PCS; principal; 2019-03-25)
DX: O09.523 Supervision of elderly multigravida, third trimester (principal); Z37.0 Single live birth; Z3A.39 39 weeks gestation of pregnancy; O99.820 Streptococcus B carrier state complicating pregnancy

== ENCOUNTER → 2020-08-24 | Outpatient (REF) | payer OTHER ==
[~2020-08-24] MED LIST changes: +ACET-683 PO; +IBUP80TA PO; +TUMS500C PO
== END ==
LOC: M LAB REF 16:00
PROVIDERS: ATTEND Physician Assistant
DX: Z11.59 Encounter for screening for other viral diseases (principal)

== ENCOUNTER → 2020-09-17 | Outpatient (REF) | payer OTHER ==
[2020-09-17 20:20] LABS: CHLAMYDIA DNA AMPLIFICATION NEGATIVE (NEGATIVE); GC DNA AMPLIFICATION NEGATIVE (NEGATIVE)
== END ==
LOC: M LAB REF 17:27
PROVIDERS: ATTEND Physician Assistant Medical
DX: Z11.3 Encounter for screening for infections with a predominantly sexual mode of transmission (principal)